=== PATIENT | male | born 1960 | race Caucasian/White ===

== ENCOUNTER 2017-01-19 16:52 | Inpatient (IN) | payer OTHER ==
[2017-01-19 19:03] VITALS: BMI 25.8
--- NOTE | 2017-01-19 20:40 | HP ---
COWS - Scale Resting Pulse: 0= [place] 80 or Below Sweatin= Chills/Flushing Restless Observation: 1= Difficult to Sit Still Pupil Size: 0= Normal to Room Light Bone or Joint Aches: 2= Severe Diffuse Aches Runny Nose/ Eye Tearin= Runny Nose/Eyes GI Upset > 30mins: 2= Nausea/Diarrhea Tremor Observation: 2= Slight Tremor Visible Yawning Observation: 1= 1-2x During Session Anxiety or Irritability: 2=Irritable/Anxious Goose Flesh Skin: 0=Smooth Skin COWS Score: 13 CIWA Score - CIWA Score Nausea/Vomitin-Mild Nausea/No Vomiting Muscle Tremors: 4-Moderate,w/Arms Extend Anxiety: 4-Mod. Anxious/Guarded Agitation: 4-Moderately Restless Paroxysmal Sweats: 1-Minimal Palms Moist Orientation: 1-Uncertain about Date Tacttile Disturbances: 0-None Auditory Disturbances: 0-None Visual Disturbances: 0-None Headache: 0-None Present CIWA-Ar Total Score: 15 Admission ROS S - HPI Chief Complaint: withdrawal sx Allergies/Adverse Reactions: Allergies Allergy/AdvReac Type Severity Reaction Status Date / Time No Known Allergies Allergy Verified 01/19/17 19:49 History of Present Illness: 56 years old male with long history of alcohol heroin nicotine marijuana dependence has asthma seizure and depression is admitted to detox Exam Limitations: No Limitations - Ebola screening Have you traveled outside of the country in the last 21 days: No Have you had contact with anyone from an Ebola affected area: No Have you been sick,other than usual withdrawal symptoms: No Do you have a fever: No - Review of Systems Constitutional: Changes in sleep, Weight Stable EENT: reports: No Symptoms Reported Respiratory: reports: SOB with Exertion Cardiac: reports: No Symptoms Reported GI: reports: Nausea, Poor Fluid Intake, Abdominal cramping : reports: No Symptoms Reported Musculoskeletal: reports: Back Pain, Joint Pain, Muscle Pain, Neck Pain Integumentary: reports: Change in Color (fungal feet) Neuro: reports: Seizure (12/2016), Tremors Endocrine: reports: No Symptoms Reported Hematology: reports: No Symptoms Reported Psychiatric: reports: Judgement Intact, Depressed Other Systems: Reviewed and Negative Patient History - Patient Medical History Hx Anemia: No Hx Asthma: Yes Hx Chronic Obstructive Pulmonary Disease (COPD): No Hx Cancer: No Hx Cardiac Disorders: No Hx Congestive Heart Failure: No Hx Hypertension: No Hx Hypercholesterolemia: No Hx Pacemaker: No HX Cerebrovascular Accident: No Hx Seizures: Yes (1 month ago) Hx Dementia: No Hx Diabetes: No Hx Gastrointestinal Disorders: No Hx Liver Disease: No Hx Genitourinary Disorders: No Hx Sexually Transmitted Disorders: No Hx Renal Disease (ESRD): No Hx Thyroid Disease: No Hx Human Immunodeficiency Virus (HIV): No Hx Hepatitis C: No Hx Depression: Yes Hx Suicide Attempt: Yes (11/2016 jump off train ) Hx Bipolar Disorder: No Hx Schizophrenia: No - Patient Surgical History Past Surgical History: No - PPD History Previous Implant?: Yes Documented Results: Negative w/o proof Implanted On Prior [facility] Admission?: No PPD to be Administered?: Yes - Smoking Cessation Smoking history: Current every day smoker Have you smoked in the past 12 months: Yes Aproximately how many cigarettes per day: 10 Cigars Per Day: 0 Hx Chewing Tobacco Use: No Initiated information on smoking cessation: Yes 'Breaking Loose' booklet given: 01/19/17 - Substance & Tx. History Hx Alcohol Use: Yes Hx Substance Use: Yes Substance Use Type: Alcohol, Heroin, Marijuana Hx Substance Use Treatment: Yes (2010 [facility]) - Substances Abused Heroin Route: Inhalation Frequency: Daily Amount used: 3-4 bags Age of first use: 39 Date of Last Use: 01/19/17 Alcohol Route: Oral Frequency: Daily Amount used: vodka 1 liter Age of first use: 11 Date of Last Use: 01/19/17 Family Disease History - Family Disease History Family Disease History: Other: Father (no contact), Mother (no contact), Brother (no contact), Sister (no contract) Admission Physical Exam S - Vital Signs Vital Signs: Vital Signs - 24 hr 01/19/17 18:59 Temperature 97.2 F L Pulse Rate 70 Respiratory 18 Rate Blood Pressure 110/83 - Physical General Appearance: Yes: Nourished, Appropriately Dressed, Mild Distress, Alcohol on Breath, Tremorous, Irritable, Sweating, Anxious HEENTM: Yes: Hearing grossly Normal, Normal ENT Inspection, Normocephalic, Normal Voice Respiratory: Yes: Chest Non-Tender, Lungs Clear, Normal Breath Sounds, No Respiratory Distress, No Accessory Muscle Use Neck: Yes: Supple, Trachea in good position Breast: Yes: Breasts Symetrical Cardiology: Yes: Regular Rhythm, Regular Rate, S1, S2 Abdominal: Yes: Non Tender, Soft Genitourinary: Yes: Within Normal Limits Back: Yes: Normal Inspection Musculoskeletal: Yes: full range of Motion, Gait Steady, Back pain, Muscle Pain Extremities: Yes: Normal Range of Motion, Non-Tender, Tremors Neurological: Yes: Alert, Motor Strength 5/5, Normal Response, Depressed Affect Integumentary: Yes: Warm Lymphatic: Yes: Within Normal Limits - Diagnostic (1) Alcohol dependence with uncomplicated withdrawal Current Visit: Yes Status: Acute (2) Opioid dependence with withdrawal Current Visit: Yes Status: Acute (3) Cannabis dependence, uncomplicated Current Visit: Yes Status: Chronic (4) Nicotine dependence Current Visit: Yes Status: Acute Qualifiers: Nicotine product type: cigarettes Substance use status: in withdrawal Qualified Code(s): F17.213 - Nicotine dependence, cigarettes, with withdrawal (5) Asthma Current Visit: Yes Status: Chronic Qualifiers: Asthma severity: mild intermittent (6) Seizure Current Visit: Yes Status: Chronic (7) Depression (emotion) Current Visit: Yes Status: Suspected Qualifiers: Depression Type: dysthymia Qualified Code(s): F34.1 - Dysthymic disorder Cleared for Admission [facility] - Detox or Rehab [facility] Level of Care: Medically Managed Detox Regimen/Protocol: Methadone/Librium [facility] Breath Alcohol Content Breath Alcohol Content: 0.147 Urine Drug Screen - Results Drug Screen Negative: No Urine Drug Screen Results: THC-Marijuana, OPI-Opiates
[2017-01-19] MEDS ORDERED: ACETAMINOPHEN 325 MG TABLET (FP) PO PRN (20:41)
[2017-01-19] MEDS ORDERED: chlordiazePOXIDE HCL 25 MG CAPSULE PO PRN (20:41)
[2017-01-19] MEDS ORDERED: MAGNESIUM HYDROX 2400MG/30ML ORAL SUSPENSION 30 ML CUP PO PRN (20:41)
[2017-01-19] MEDS ORDERED: MAGNESIUM CITRATE 300 ML BOTTLE PO PRN (20:41)
[2017-01-19] MEDS ORDERED: NICOTINE POLACRILEX 2 MG GUM BUC PRN (20:41)
[2017-01-19] MEDS ORDERED: METHADONE HCL 10 MG TABLET (FOR DETOX USE ONLY) PO ONE ×2 (20:41→23:00)
[2017-01-19] MEDS ORDERED: MENTHOL/PHENOL 1 EACH UD MM PRN (20:41)
[2017-01-19] MEDS ORDERED: MAG HYDROX/AL HYDROX/SIMETH 30 ML UNIT-DOSE CUP PO PRN (20:41)
[2017-01-19] MEDS ORDERED: guaiFENesin/D-METHORPHAN HB 10 ML UNIT-DOSE CUPS PO PRN (20:41)
[2017-01-19] MEDS ORDERED: P-EPHED 60MG/TRIPROLIDI 2.5MG TABLET PO PRN (20:41)
[2017-01-19] MEDS ORDERED: LOPERAMIDE HCL 2 MG CAPSULE PO PRN (20:41)
[2017-01-19] MEDS ORDERED: ALBUTEROL SO4 6.7 GM HFA INHALER IH PRN (20:46)
[2017-01-19] MEDS ORDERED: METHADONE HCL 10 MG TABLET (FOR DETOX USE ONLY) ONE (22:59)
[2017-01-19] MEDS: PHENYTOIN NA EXTENDED 100 MG CAPSULE (FP) PO SCH (23:00)
[2017-01-19] MEDS: CLOTRIMAZOLE 1% CREAM 15 GM TUBE TP SCH (23:01)
[2017-01-19] MEDS: chlordiazePOXIDE HCL 25 MG CAPSULE PO SCH (23:01)
[2017-01-19] MEDS: THIAMINE HCL 100 MG TABLET (FP) PO SCH (23:01)
[2017-01-20] MEDS: PHENYTOIN NA EXTENDED 100 MG CAPSULE (FP) PO SCH ×3 (05:44→22:23)
[2017-01-20] MEDS: chlordiazePOXIDE HCL 25 MG CAPSULE PO SCH ×4 (05:45→22:23)
--- NOTE | 2017-01-20 09:41 | CONSULT ---
[facility] Psychiatric Consult - Data Date of interview: 01/20/17 Admission source: [facility] Identifying data: This is 56 years old male with no psychiatric hospitalization history, intoxicated with: Alcohol, Cannabis,m Opioids and Nicotine Substance Abuse History: - Smoking Cessation. Smoking history: Current every day smoker. Have you smoked in the past 12 months: Yes. Aproximately how many cigarettes per day: 10. Cigars Per Day: 0. Hx Chewing Tobacco Use: No. Initiated information on smoking cessation: Yes. 'Breaking Loose' booklet given : 01/19/17. - Substance & Tx. History. Hx Alcohol Use: Yes. Hx Substance Use : Yes. Substance Use Type: Alcohol, Heroin, Marijuana. Hx Substance Use Treatment: Yes (2010). - Substances Abused. Heroin. Route: Inhalation. Frequency: Daily. Amount used: 3-4 bags. Age of first use: 39. Date of Last Use: 01/19/17. Alcohol. Route: Oral. Frequency: Daily. Amount used: vodka 1 liter. Age of first use: 11. Date of Last Use: 01/19/17 Medical History: Asthma, Seizure history Psychiatric History: Patoient rep[rots history [id number] depression, reports no medications taking prior to admission Physical/Sexual Abuse/Trauma History: Denies Additional Comment: Observatiluken. Detox Unit Care Protocol Mental Status Exam - Mental Status Exam Alert and Oriented to: Person Cognitive Function: Fair Patient Appearance: Unkempt Mood: Sad Affect: Flat Patient Behavior: Sedated Speech Pattern: Delayed Voice Loudness: Mildly Soft/Quiet Thought Process: Circumstantial Thought Disorder: Being Controlled Hallucinations: Denies Suicidal Ideation: Denies Homicidal Ideation: Denies Insight/Judgement: Fair Sleep: Difficulty falling asleep Appetite: Fair Muscle strength/Tone: Mild Hypotonicity Gait/Station: Shuffling Additional Comments: Observatiuon. Detox Unit Care Protocol Psychiatric Findings - Problem List (Seltzer 1, 2,3) (1) Alcohol dependence with uncomplicated withdrawal Current Visit: Yes Status: Acute (2) Nicotine dependence Current Visit: Yes Status: Acute Qualifiers: Nicotine product type: cigarettes Substance use status: in withdrawal Qualified Code(s): F17.213 - Nicotine dependence, cigarettes, with withdrawal (3) Opioid dependence with withdrawal Current Visit: Yes Status: Acute (4) Cannabis dependence, uncomplicated Current Visit: Yes Status: Chronic (5) Drug-induced mood disorder Current Visit: Yes Status: Acute - Initial Treatment Plan Initial Treatment Plan: Observatiuon. Detox Unit Care Protocol
[2017-01-20 09:59] LABS: MCH 34.6 pg (25.7-33.7); MCHC 34.2 g/dl (32.0-35.9); MEAN PLT VOLUME 8.7 fl (7.5-11.1); PLATELET COUNT 158 K/MM3 (134-434); RDW 14.6 % (11.9-15.9); WHITE BLOOD COUNT 3.9 K/mm3 (4.0-10.0)
[2017-01-20] MEDS ORDERED: METHADONE HCL 10 MG TABLET (FOR DETOX USE ONLY) PO SCH (10:00)
[2017-01-20] MEDS: NICOTINE 14 MG/24 HOURS TOPICAL PATCH TD SCH (10:35)
[2017-01-20] MEDS: PRENATAL VITAMINS W/ FOLIC ACID TABLET (FP) PO SCH (10:35)
[2017-01-20] MEDS: CLOTRIMAZOLE 1% CREAM 15 GM TUBE TP SCH ×2 (10:35→22:23)
[2017-01-20 10:44] LABS: ALBUMIN 3.5 g/dl (3.4-5.0); ALK PHOS 82 U/L (45-117); ANION GAP 8 (8-16); BILIRUBIN,TOTAL 0.9 mg/dL (0.2-1.0); CALCIUM 9.1 mg/dL (8.5-10.1); CO2 29 mmol/L (21-32); CREATININE 0.8 mg/dL (0.7-1.3); GLUCOSE,RANDOM 83 mg/dL (74-106); SGOT/AST 19 U/L (15-37); SGPT/ALT 19 U/L (12-78)
[2017-01-20] MEDS ORDERED: PHENYTOIN NA EXTENDED 100 MG CAPSULE (FP) PO ONE (11:54)
--- NOTE | 2017-01-20 11:55 | PN ---
[facility] CIWA - CIWA Score Nausea/Vomitin Muscle Tremors: 4-Moderate,w/Arms Extend Anxiety: 3 Agitation: 4-Moderately Restless Paroxysmal Sweats: 3 Orientation: 0-Oriented Tacttile Disturbances: 0-None Auditory Disturbances: 0-None Visual Disturbances: 0-None Headache: 0-None Present CIWA-Ar Total Score: 17 [facility] COWS - Scale Resting Pulse: 0= [place] 80 or Below Sweatin= Chills/Flushing Restless Observation: 1= Difficult to Sit Still Pupil Size: 1= Pupils >than Normal Bone or Joint Aches: 1= Mild Discomfort Runny Nose/ Eye Tearin= Nasal Congestion GI Upset > 30mins: 1= Stomach Cramp Tremor Observation of Outstretched Hands: 2= Slight Tremor Visible Yawning Observation: 1= 1-2x During Session Anxiety or Irritability: 2=Irritable/Anxious Goose Flesh Skin: 3=Piloerection COWS Score: 14 [facility] Progress Note (SOAP) Subjective: nausea, sweats, interrupted sleep, anxiety, tremors Objective: 01/20/17 11:53 Vital Signs - 24 hr 01/19/17 01/19/17 01/20/17 18:59 23:00 00:28 Temperature 97.2 F L 97.8 F Pulse Rate 70 66 Respiratory 18 20 18 Rate Blood Pressure 110/83 135/89 01/20/17 01/20/17 01/20/17 03:47 06:46 10:07 Temperature 97.6 F 97.4 F L Pulse Rate 67 64 Respiratory 18 18 18 Rate Blood Pressure 138/94 137/87 Laboratory Tests 01/20/17 01/20/17 01/20/17 07:00 07:00 07:00 WBC 3.9 L RBC 4.28 Hgb 14.8 Hct 43.3 MCV 101.0 H MCH 34.6 H MCHC 34.2 RDW 14.6 Plt Count 158 MPV 8.7 Sodium 139 Potassium 3.6 Chloride 102 Carbon Dioxide 29 Anion Gap 8 BUN 10 Creatinine 0.8 Creat Clearance w eGFR > 60 Random Glucose 83 Calcium 9.1 Total Bilirubin 0.9 AST 19 ALT 19 Alkaline Phosphatase 82 Total Protein 7.0 Albumin 3.5 Phenytoin 3.4 L RPR Titer 01/20/17 07:00 WBC RBC Hgb Hct MCV MCH MCHC RDW Plt Count MPV Sodium Potassium Chloride Carbon Dioxide Anion Gap BUN Creatinine Creat Clearance w eGFR Random Glucose Calcium Total Bilirubin AST ALT Alkaline Phosphatase Total Protein Albumin Phenytoin RPR Titer Nonreactive Assessment: 01/20/17 11:54 withdrawal sx, low dilantin level Plan: cont detox, supplement dilantin, repeat level
--- NOTE | 2017-01-20 15:02 | EKG ---
Test Reason : Blood Pressure : / mmHG Vent. Rate : 057 BPM Atrial Rate : 057 BPM P-R Int : 150 ms QRS Dur : 084 ms QT Int : 432 ms P-R-T Axes : 067 058 059 degrees QTc Int : 420 ms SINUS BRADYCARDIA OTHERWISE NORMAL ECG NO PREVIOUS ECGS AVAILABLE Confirmed by GARY RODRIGUEZ, DELGADO ([id number]) on 01/20/2017 3:02:00 PM Referred By: Jeremie Calvillo Confirmed By:DELGADO VEGA MD
[2017-01-20 17:24] LABS: PH,URINE 5.5 (5.0-8.0); URINE APPEARANCE CLEAR; URINE BILIRUBIN NEGATIVE (NEGATIVE); URINE BLOOD NEGATIVE (NEGATIVE); URINE COLOR LT. YELLOW; URINE GLUCOSE (UA) NEGATIVE (NEGATIVE); URINE KETONE NEGATIVE (NEGATIVE); URINE LEUK ESTERASE NEGATIVE (NEGATIVE); URINE NITRITE NEGATIVE (NEGATIVE); URINE PROTEIN NEGATIVE (NEGATIVE); URINE UROBILINOGEN 0.2 mg/dL (0.2-1.0)
[2017-01-20] MEDS: THIAMINE HCL 100 MG TABLET (FP) PO SCH (22:23)
[2017-01-21] MEDS: PHENYTOIN NA EXTENDED 100 MG CAPSULE (FP) PO SCH ×3 (05:48→22:12)
[2017-01-21] MEDS: chlordiazePOXIDE HCL 25 MG CAPSULE PO SCH ×3 (05:48→18:43)
[2017-01-21] MEDS: PRENATAL VITAMINS W/ FOLIC ACID TABLET (FP) PO SCH (10:25)
[2017-01-21] MEDS: METHADONE HCL 5 MG TABLET (FOR DETOX USE ONLY) PO SCH (10:25)
[2017-01-21] MEDS: CLOTRIMAZOLE 1% CREAM 15 GM TUBE TP SCH ×2 (10:26→23:02)
[2017-01-21] MEDS: NICOTINE 14 MG/24 HOURS TOPICAL PATCH TD SCH (10:26)
--- NOTE | 2017-01-21 16:15 | PN ---
[facility] CIWA - CIWA Score Nausea/Vomitin-No Nausea/No Vomiting Muscle Tremors: 3 Anxiety: 4-Mod. Anxious/Guarded Agitation: 3 Paroxysmal Sweats: 3 Orientation: 0-Oriented Tacttile Disturbances: 0-None Auditory Disturbances: 0-None Visual Disturbances: 0-None Headache: 0-None Present CIWA-Ar Total Score: 13 [facility] COWS - Scale Resting Pulse: 0= [place] 80 or Below Sweatin=Flushed/Facial Moisture Restless Observation: 1= Difficult to Sit Still Pupil Size: 0= Normal to Room Light Bone or Joint Aches: 1= Mild Discomfort Runny Nose/ Eye Tearin= Runny Nose/Eyes GI Upset > 30mins: 2= Nausea/Diarrhea Tremor Observation of Outstretched Hands: 2= Slight Tremor Visible Yawning Observation: 1= 1-2x During Session Anxiety or Irritability: 2=Irritable/Anxious Goose Flesh Skin: 0=Smooth Skin COWS Score: 13 [facility] Progress Note (SOAP) Subjective: Anxiety,tremors,sweating,interrupted sleep,restless Objective: 01/21/17 16:14 Vital Signs - 8 hr 01/21/17 01/21/17 01/21/17 09:38 09:48 13:56 Temperature 97.8 F 97.8 F 97.3 F L Pulse Rate 69 69 71 Respiratory 18 18 18 Rate Blood Pressure 125/88 125/88 124/93 Laboratory Last Values WBC 3.9 K/mm3 (4.0-10.0) L 01/20/17 07:00 RBC 4.28 M/mm3 (4.00-5.60) 01/20/17 07:00 Hgb 14.8 GM/dL (11.7-16.9) 01/20/17 07:00 Hct 43.3 % (35.4-49) 01/20/17 07:00 MCV 101.0 fl (80-96) H 01/20/17 07:00 MCH 34.6 pg (25.7-33.7) H 01/20/17 07:00 MCHC 34.2 g/dl (32.0-35.9) 01/20/17 07:00 RDW 14.6 % (11.9-15.9) 01/20/17 07:00 Plt Count 158 K/MM3 (134-434) 01/20/17 07:00 MPV 8.7 fl (7.5-11.1) 01/20/17 07:00 Sodium 139 mmol/L (136-145) 01/20/17 07:00 Potassium 3.6 mmol/L (3.5-5.1) 01/20/17 07:00 Chloride 102 mmol/L (98-107) 01/20/17 07:00 Carbon Dioxide 29 mmol/L (21-32) 01/20/17 07:00 Anion Gap 8 (8-16) 01/20/17 07:00 BUN 10 mg/dL (7-18) 01/20/17 07:00 Creatinine 0.8 mg/dL (0.7-1.3) 01/20/17 07:00 Creat Clearance w eGFR > 60 (>60) 01/20/17 07:00 Random Glucose 83 mg/dL (74-106) 01/20/17 07:00 Calcium 9.1 mg/dL (8.5-10.1) 01/20/17 07:00 Total Bilirubin 0.9 mg/dL (0.2-1.0) 01/20/17 07:00 AST 19 U/L (15-37) 01/20/17 07:00 ALT 19 U/L (12-78) 01/20/17 07:00 Alkaline Phosphatase 82 U/L (45-117) 01/20/17 07:00 Total Protein 7.0 g/dl (6.4-8.2) 01/20/17 07:00 Albumin 3.5 g/dl (3.4-5.0) 01/20/17 07:00 Urine Color Lt. yellow 01/19/17 15:00 Urine Appearance Clear 01/19/17 15:00 Urine pH 5.5 (5.0-8.0) 01/19/17 15:00 Ur Specific [place] 1.015 (1.005-1.025) 01/19/17 15:00 Urine Protein Negative (NEGATIVE) 01/19/17 15:00 Urine Glucose (UA) Negative (NEGATIVE) 01/19/17 15:00 Urine Ketones Negative (NEGATIVE) 01/19/17 15:00 Urine Blood Negative (NEGATIVE) 01/19/17 15:00 Urine Nitrite Negative (NEGATIVE) 01/19/17 15:00 Urine Bilirubin Negative (NEGATIVE) 01/19/17 15:00 Urine Urobilinogen 0.2 mg/dL (0.2-1.0) 01/19/17 15:00 Ur Leukocyte Esterase Negative (NEGATIVE) 01/19/17 15:00 Phenytoin 3.4 ug/ml (10.0-20.0) L 01/20/17 07:00 RPR Titer Nonreactive (NONREACTIVE) 01/20/17 07:00 Hepatitis C Antibody <0.1 s/co ratio (0.0-0.9) 01/19/17 07:00 labs noted,dilantin level is low Assessment: 01/21/17 16:14 Withdrawal sx. Plan: Continue detox Dilantin 300mg
[2017-01-21] MEDS: THIAMINE HCL 100 MG TABLET (FP) PO SCH (22:12)
[2017-01-21] MEDS: chlordiazePOXIDE 5 MG CAPSULE PO SCH (22:12)
[2017-01-22] MEDS: chlordiazePOXIDE 5 MG CAPSULE PO SCH ×3 (05:42→17:47)
[2017-01-22] MEDS: PHENYTOIN NA EXTENDED 100 MG CAPSULE (FP) PO SCH ×3 (05:42→22:25)
[2017-01-22] MEDS: PRENATAL VITAMINS W/ FOLIC ACID TABLET (FP) PO SCH (10:39)
[2017-01-22] MEDS: METHADONE HCL 5 MG TABLET (FOR DETOX USE ONLY) PO SCH (10:39)
[2017-01-22] MEDS: CLOTRIMAZOLE 1% CREAM 15 GM TUBE TP SCH ×2 (10:39→22:25)
[2017-01-22] MEDS: IBUPROFEN 400 MG TABLET (FP) PO PRN (10:42)
[2017-01-22] MEDS: NICOTINE 14 MG/24 HOURS TOPICAL PATCH TD SCH (10:43)
--- NOTE | 2017-01-22 20:34 | PN ---
[facility] Progress Note (SOAP) Subjective: Tremors, Body Aches, Anxious. Objective: PT. A & O X 3, OBSERVED AMBULATING ON UNIT. NO ACUTE DISTRESS. 01/22/17 20:30 Vital Signs Temperature 97.8 F 01/22/17 19:01 Pulse Rate 63 01/22/17 19:01 Respiratory Rate 18 01/22/17 19:01 Blood Pressure 107/71 01/22/17 19:01 O2 Sat by Pulse Oximetry (%) Laboratory Tests 01/19/17 01/19/17 01/20/17 07:00 15:00 07:00 WBC 3.9 L RBC 4.28 Hgb 14.8 Hct 43.3 MCV 101.0 H MCH 34.6 H MCHC 34.2 RDW 14.6 Plt Count 158 MPV 8.7 Sodium Potassium Chloride Carbon Dioxide Anion Gap BUN Creatinine Creat Clearance w eGFR Random Glucose Calcium Total Bilirubin AST ALT Alkaline Phosphatase Total Protein Albumin Urine Color Lt. yellow Urine Appearance Clear Urine pH 5.5 Ur Specific [place] 1.015 Urine Protein Negative Urine Glucose (UA) Negative Urine Ketones Negative Urine Blood Negative Urine Nitrite Negative Urine Bilirubin Negative Urine Urobilinogen 0.2 Ur Leukocyte Esterase Negative Phenytoin RPR Titer Hepatitis C Antibody <0.1 01/20/17 01/20/17 01/20/17 07:00 07:00 07:00 WBC RBC Hgb Hct MCV MCH MCHC RDW Plt Count MPV Sodium 139 Potassium 3.6 Chloride 102 Carbon Dioxide 29 Anion Gap 8 BUN 10 Creatinine 0.8 Creat Clearance w eGFR > 60 Random Glucose 83 Calcium 9.1 Total Bilirubin 0.9 AST 19 ALT 19 Alkaline Phosphatase 82 Total Protein 7.0 Albumin 3.5 Urine Color Urine Appearance Urine pH Ur Specific [place] Urine Protein Urine Glucose (UA) Urine Ketones Urine Blood Urine Nitrite Urine Bilirubin Urine Urobilinogen Ur Leukocyte Esterase Phenytoin 3.4 L RPR Titer Nonreactive Hepatitis C Antibody 01/22/17 08:00 WBC RBC Hgb Hct MCV MCH MCHC RDW Plt Count MPV Sodium Potassium Chloride Carbon Dioxide Anion Gap BUN Creatinine Creat Clearance w eGFR Random Glucose Calcium Total Bilirubin AST ALT Alkaline Phosphatase Total Protein Albumin Urine Color Urine Appearance Urine pH Ur Specific [place] Urine Protein Urine Glucose (UA) Urine Ketones Urine Blood Urine Nitrite Urine Bilirubin Urine Urobilinogen Ur Leukocyte Esterase Phenytoin 6.0 L D RPR Titer Hepatitis C Antibody LABS NOTED. RESULT OF REPEAT DILANTIN LEVEL NOTED. PT. CURRENTLY ON DILANTIN, 100 MG PO TID. 01/22/17 20:36 Assessment: 01/22/17 20:31 WITHDRAWAL SYMPTOMS. Plan: CONTINUE DETOX.
[2017-01-22] MEDS: THIAMINE HCL 100 MG TABLET (FP) PO SCH (22:24)
[2017-01-22] MEDS: chlordiazePOXIDE HCL 10 MG CAPSULE PO SCH (22:24)
[2017-01-22] MEDS: diphenhydrAMINE HCL 50 MG CAPSULE PO PRN (22:25)
[2017-01-23] MEDS: chlordiazePOXIDE HCL 10 MG CAPSULE PO SCH ×3 (05:59→16:56)
[2017-01-23] MEDS: PHENYTOIN NA EXTENDED 100 MG CAPSULE (FP) PO SCH ×3 (05:59→22:27)
[2017-01-23] MEDS ORDERED: METHADONE HCL 10 MG TABLET (FOR DETOX USE ONLY) PO SCH (10:00)
[2017-01-23] MEDS: CLOTRIMAZOLE 1% CREAM 15 GM TUBE TP SCH ×2 (10:40→22:48)
[2017-01-23] MEDS: PRENATAL VITAMINS W/ FOLIC ACID TABLET (FP) PO SCH (10:40)
[2017-01-23] MEDS: NICOTINE 14 MG/24 HOURS TOPICAL PATCH TD SCH (10:40)
[2017-01-23] MEDS: IBUPROFEN 400 MG TABLET (FP) PO PRN (11:02)
--- NOTE | 2017-01-23 16:05 | PN ---
[facility] Progress Note (SOAP) Subjective: Anxious, restless, interrupted sleep, sweating. Patient stated that he is for discharge tomorrow and wants to leave at 8am because he has a doctor's appt at 10am. Objective: 01/23/17 16:03 Last Vital Signs Temp Pulse Resp BP Pulse Ox 97.0 F L 67 18 122/82 01/23/17 13:49 01/23/17 13:49 01/23/17 13:49 01/23/17 13:49 Laboratory Tests 01/19/17 01/19/17 01/20/17 07:00 15:00 07:00 WBC 3.9 L RBC 4.28 Hgb 14.8 Hct 43.3 MCV 101.0 H MCH 34.6 H MCHC 34.2 RDW 14.6 Plt Count 158 MPV 8.7 Sodium Potassium Chloride Carbon Dioxide Anion Gap BUN Creatinine Creat Clearance w eGFR Random Glucose Calcium Total Bilirubin AST ALT Alkaline Phosphatase Total Protein Albumin Urine Color Lt. yellow Urine Appearance Clear Urine pH 5.5 Ur Specific [place] 1.015 Urine Protein Negative Urine Glucose (UA) Negative Urine Ketones Negative Urine Blood Negative Urine Nitrite Negative Urine Bilirubin Negative Urine Urobilinogen 0.2 Ur Leukocyte Esterase Negative Phenytoin RPR Titer Hepatitis C Antibody <0.1 01/20/17 01/20/17 01/20/17 07:00 07:00 07:00 WBC RBC Hgb Hct MCV MCH MCHC RDW Plt Count MPV Sodium 139 Potassium 3.6 Chloride 102 Carbon Dioxide 29 Anion Gap 8 BUN 10 Creatinine 0.8 Creat Clearance w eGFR > 60 Random Glucose 83 Calcium 9.1 Total Bilirubin 0.9 AST 19 ALT 19 Alkaline Phosphatase 82 Total Protein 7.0 Albumin 3.5 Urine Color Urine Appearance Urine pH Ur Specific [place] Urine Protein Urine Glucose (UA) Urine Ketones Urine Blood Urine Nitrite Urine Bilirubin Urine Urobilinogen Ur Leukocyte Esterase Phenytoin 3.4 L RPR Titer Nonreactive Hepatitis C Antibody 01/22/17 08:00 WBC RBC Hgb Hct MCV MCH MCHC RDW Plt Count MPV Sodium Potassium Chloride Carbon Dioxide Anion Gap BUN Creatinine Creat Clearance w eGFR Random Glucose Calcium Total Bilirubin AST ALT Alkaline Phosphatase Total Protein Albumin Urine Color Urine Appearance Urine pH Ur Specific [place] Urine Protein Urine Glucose (UA) Urine Ketones Urine Blood Urine Nitrite Urine Bilirubin Urine Urobilinogen Ur Leukocyte Esterase Phenytoin 6.0 L D RPR Titer Hepatitis C Antibody Labs noted Assessment: 01/23/17 16:04 Withdrawal symptoms Plan: Continue detox Ordered for discharge tomorrow at 08:00.
[2017-01-23] MEDS: THIAMINE HCL 100 MG TABLET (FP) PO SCH (22:27)
[2017-01-23] MEDS: diphenhydrAMINE HCL 50 MG CAPSULE PO PRN (22:28)
[2017-01-24] MEDS: PHENYTOIN NA EXTENDED 100 MG CAPSULE (FP) PO SCH (05:25)
[2017-01-24] MEDS ORDERED: METHADONE HCL 5 MG TABLET (FOR DETOX USE ONLY) PO SCH (06:00)
[2017-01-24] MEDS: PRENATAL VITAMINS W/ FOLIC ACID TABLET (FP) PO SCH (09:05)
[2017-01-24] MEDS: CLOTRIMAZOLE 1% CREAM 15 GM TUBE TP SCH (09:05)
[2017-01-24] MEDS: NICOTINE 14 MG/24 HOURS TOPICAL PATCH TD SCH (09:05)
[2017-01-24 09:40] VITALS: BP 120/93; PULSE 78; TEMP 97.2
--- NOTE | 2017-01-24 09:44 | DS ---
[facility] Detox Discharge Summary Admission Date: 01/19/17 Discharge Date: 01/24/17 - History Present History: Alcohol Dependence, Cannabis Dependence, Opioid Dependence Pertinent Past History: Asthma Seizure disorder - Physical Exam Results Vital Signs: Vital Signs Temperature 97.4 F L 01/24/17 06:26 Pulse Rate 68 01/24/17 06:26 Respiratory Rate 18 01/24/17 06:26 Blood Pressure 127/89 01/24/17 06:26 O2 Sat by Pulse Oximetry (%) Pertinent Admission Physical Exam Findings: Withdrawal sx. Laboratory Last Values WBC 3.9 K/mm3 (4.0-10.0) L 01/20/17 07:00 RBC 4.28 M/mm3 (4.00-5.60) 01/20/17 07:00 Hgb 14.8 GM/dL (11.7-16.9) 01/20/17 07:00 Hct 43.3 % (35.4-49) 01/20/17 07:00 MCV 101.0 fl (80-96) H 01/20/17 07:00 MCH 34.6 pg (25.7-33.7) H 01/20/17 07:00 MCHC 34.2 g/dl (32.0-35.9) 01/20/17 07:00 RDW 14.6 % (11.9-15.9) 01/20/17 07:00 Plt Count 158 K/MM3 (134-434) 01/20/17 07:00 MPV 8.7 fl (7.5-11.1) 01/20/17 07:00 Sodium 139 mmol/L (136-145) 01/20/17 07:00 Potassium 3.6 mmol/L (3.5-5.1) 01/20/17 07:00 Chloride 102 mmol/L (98-107) 01/20/17 07:00 Carbon Dioxide 29 mmol/L (21-32) 01/20/17 07:00 Anion Gap 8 (8-16) 01/20/17 07:00 BUN 10 mg/dL (7-18) 01/20/17 07:00 Creatinine 0.8 mg/dL (0.7-1.3) 01/20/17 07:00 Creat Clearance w eGFR > 60 (>60) 01/20/17 07:00 Random Glucose 83 mg/dL (74-106) 01/20/17 07:00 Calcium 9.1 mg/dL (8.5-10.1) 01/20/17 07:00 Total Bilirubin 0.9 mg/dL (0.2-1.0) 01/20/17 07:00 AST 19 U/L (15-37) 01/20/17 07:00 ALT 19 U/L (12-78) 01/20/17 07:00 Alkaline Phosphatase 82 U/L (45-117) 01/20/17 07:00 Total Protein 7.0 g/dl (6.4-8.2) 01/20/17 07:00 Albumin 3.5 g/dl (3.4-5.0) 01/20/17 07:00 Urine Color Lt. yellow 01/19/17 15:00 Urine Appearance Clear 01/19/17 15:00 Urine pH 5.5 (5.0-8.0) 01/19/17 15:00 Ur Specific [place] 1.015 (1.005-1.025) 01/19/17 15:00 Urine Protein Negative (NEGATIVE) 01/19/17 15:00 Urine Glucose (UA) Negative (NEGATIVE) 01/19/17 15:00 Urine Ketones Negative (NEGATIVE) 01/19/17 15:00 Urine Blood Negative (NEGATIVE) 01/19/17 15:00 Urine Nitrite Negative (NEGATIVE) 01/19/17 15:00 Urine Bilirubin Negative (NEGATIVE) 01/19/17 15:00 Urine Urobilinogen 0.2 mg/dL (0.2-1.0) 01/19/17 15:00 Ur Leukocyte Esterase Negative (NEGATIVE) 01/19/17 15:00 Phenytoin 6.0 ug/ml (10.0-20.0) L D 01/22/17 08:00 RPR Titer Nonreactive (NONREACTIVE) 01/20/17 07:00 Hepatitis C Antibody <0.1 s/co ratio (0.0-0.9) 01/19/17 07:00 labs noted - Treatment Hospital Course: Detox Protocol Followed, Detoxed Safely, Responded well, Discharged Condition Good, Rehab Referral Accepted Patient has Accepted a Rehab Referral to: [facility] Help Groups - Medication Discharge Medications: Ambulatory Orders Albuterol Sulfate Inhaler - [Ventolin Hfa Inhaler -] 2 inh PO Q4H #1 inhaler Phenytoin Na Extended [Dilantin -] 100 mg PO TID #90 mg 01/24/17 - Diagnosis (1) Alcohol dependence with uncomplicated withdrawal Current Visit: Yes Status: Acute (2) Drug-induced mood disorder Current Visit: Yes Status: Acute (3) Nicotine dependence Current Visit: Yes Status: Acute Qualifiers: Nicotine product type: cigarettes Substance use status: in withdrawal Qualified Code(s): F17.213 - Nicotine dependence, cigarettes, with withdrawal (4) Opioid dependence with withdrawal Current Visit: Yes Status: Acute (5) Asthma Current Visit: Yes Status: Chronic Qualifiers: Asthma severity: mild intermittent (6) Cannabis dependence, uncomplicated Current Visit: Yes Status: Chronic (7) Seizure Current Visit: Yes Status: Chronic - AMA Did Patient Leave Against Medical Advice: No
== END 2017-01-24 09:06 | disposition home or self-care (01) | DRG 773 ==
LOC: YASAS 16:52 → Y3N 21:40
PROVIDERS: ADMIT Internal Medicine; ATTEND Internal Medicine
PROC: HZ2ZZZZ Detoxification Services for Substance Abuse Treatment (ICD-10-PCS; principal; 2017-01-19)
DX: F11.23 Opioid dependence with withdrawal (principal); F10.230 Alcohol dependence with withdrawal, uncomplicated; F12.20 Cannabis dependence, uncomplicated; F17.213 Nicotine dependence, cigarettes, with withdrawal; F19.24 Other psychoactive substance dependence with psychoactive substance-induced mood disorder; J45.909 Unspecified asthma, uncomplicated; G40.909 Epilepsy, unspecified, not intractable, without status epilepticus; Z91.5 Personal history of self-harm
CPT/HCPCS: 36415; 80053; 80185; 81003; 85027; 86593; 86803; 93005; 93010

== ENCOUNTER 2017-05-03 15:34 | Inpatient (IN) | payer OTHER ==
[2017-05-03 17:08] VITALS: BMI 25.7
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
[2017-05-03] MEDS ORDERED: chlordiazePOXIDE HCL 25 MG CAPSULE PO PRN (19:05)
[2017-05-03] MEDS ORDERED: MAGNESIUM HYDROX 2400MG/30ML ORAL SUSPENSION 30 ML CUP PO PRN (19:05)
[2017-05-03] MEDS ORDERED: ACETAMINOPHEN 325 MG TABLET (FP) PO PRN (19:05)
[2017-05-03] MEDS ORDERED: P-EPHED 60MG/TRIPROLIDI 2.5MG TABLET PO PRN (19:05)
[2017-05-03] MEDS ORDERED: MAGNESIUM CITRATE 300 ML BOTTLE PO PRN (19:05)
[2017-05-03] MEDS ORDERED: MENTHOL/PHENOL 1 EACH UD MM PRN (19:05)
[2017-05-03] MEDS ORDERED: MAG HYDROX/AL HYDROX/SIMETH 30 ML UNIT-DOSE CUP PO PRN (19:05)
[2017-05-03] MEDS ORDERED: METHADONE HCL 10 MG TABLET (FOR DETOX USE ONLY) PO ONE ×2 (19:05→23:00)
[2017-05-03] MEDS ORDERED: LOPERAMIDE HCL 2 MG CAPSULE PO PRN (19:05)
[2017-05-03] MEDS ORDERED: NICOTINE POLACRILEX 4 MG GUM BC PRN (19:05)
[2017-05-03] MEDS ORDERED: guaiFENesin/D-METHORPHAN HB 10 ML UNIT-DOSE CUPS PO PRN (19:05)
[2017-05-03] MEDS ORDERED: ALBUTEROL SO4 2.5/IPRATROPIUM 0.5 INH SOL 3 ML VIAL.NEB. NEB PRN (19:07)
[2017-05-03] MEDS: ALBUTEROL SO4 18 GM HFA INHALER IH SCH ×2 (20:14→22:51)
[2017-05-03] MEDS: RANITIDINE HCL 150 MG TABLET (FP) PO SCH ×2 (20:14→22:06)
[2017-05-03] MEDS: PHENYTOIN NA EXTENDED 100 MG CAPSULE (FP) PO SCH (22:06)
[2017-05-03] MEDS: THIAMINE HCL 100 MG TABLET (FP) PO SCH (22:06)
[2017-05-03] MEDS: chlordiazePOXIDE HCL 25 MG CAPSULE PO SCH (22:06)
[2017-05-03] MEDS: LIDOCAINE PATCH REMOVAL MC SCH (22:06)
[2017-05-03] MEDS: CLOTRIMAZOLE 1% CREAM 15 GM TUBE TP SCH ×2 (22:51→23:27)
[2017-05-03] MEDS ORDERED: ALBUTEROL SO4 18 GM HFA INHALER IH PRN (22:53)
[2017-05-04] MEDS: chlordiazePOXIDE HCL 25 MG CAPSULE PO SCH ×4 (05:31→22:10)
[2017-05-04] MEDS: PHENYTOIN NA EXTENDED 100 MG CAPSULE (FP) PO SCH ×3 (05:31→22:09)
[2017-05-04] MEDS ORDERED: METHADONE HCL 10 MG TABLET (FOR DETOX USE ONLY) PO SCH (10:00)
[2017-05-04] MEDS: NICOTINE 21 MG/24 HOURS TOPICAL PATCH TD SCH (10:18)
[2017-05-04 10:19] LABS: MCH 35.3 pg (25.7-33.7); MCHC 33.6 g/dl (32.0-35.9); MEAN CELL VOLUME 105.1 fl (80-96); MEAN PLT VOLUME 8.8 fl (7.5-11.1); PLATELET COUNT 106 K/MM3 (134-434); RDW 12.3 % (11.9-15.9); WHITE BLOOD COUNT 3.4 K/mm3 (4.0-10.0)
[2017-05-04] MEDS: RANITIDINE HCL 150 MG TABLET (FP) PO SCH ×2 (10:19→22:09)
[2017-05-04] MEDS: CLOTRIMAZOLE 1% CREAM 15 GM TUBE TP SCH ×2 (10:19→22:09)
[2017-05-04 10:20] LABS: ALBUMIN 3.5 g/dl (3.4-5.0); ANION GAP 5 (8-16); BILIRUBIN,TOTAL 1.2 mg/dL (0.2-1.0); CALCIUM 8.6 mg/dL (8.5-10.1); CO2 33 mmol/L (21-32); CREATININE 0.7 mg/dL (0.7-1.3); GLUCOSE,RANDOM 79 mg/dL (74-106); SGOT/AST 39 U/L (15-37); SGPT/ALT 37 U/L (12-78); TOT PROT 6.6 g/dl (6.4-8.2)
[2017-05-04 10:21] LABS: ALK PHOS 89 U/L (45-117)
[2017-05-04] MEDS: PRENATAL VITAMINS W/ FOLIC ACID TABLET (FP) PO SCH (10:23)
[2017-05-04 10:48] LABS: URINE APPEARANCE CLEAR; URINE BILIRUBIN NEGATIVE (NEGATIVE); URINE BLOOD NEGATIVE (NEGATIVE); URINE COLOR YELLOW; URINE GLUCOSE (UA) NEGATIVE (NEGATIVE); URINE KETONE TRACE (NEGATIVE); URINE NITRITE NEGATIVE (NEGATIVE); URINE PROTEIN TRACE (NEGATIVE); URINE UROBILINOGEN 0.2 mg/dL (0.2-1.0)
[2017-05-04] MEDS: LIDOCAINE 5% TOPICAL PATCH TP SCH (11:22)
--- NOTE | 2017-05-04 11:28 | PN ---
[facility] CIWA - CIWA Score Nausea/Vomitin-No Nausea/No Vomiting Muscle Tremors: 4-Moderate,w/Arms Extend Anxiety: 3 Agitation: 2 Paroxysmal Sweats: 3 Orientation: 0-Oriented Tacttile Disturbances: 2-Mild Itch/Numbness/Burn Auditory Disturbances: 0-None Visual Disturbances: 0-None Headache: 3-Moderate CIWA-Ar Total Score: 17 BHS COWS - Scale Resting Pulse: 1= [place] 81-100 Sweatin= Chills/Flushing Restless Observation: 1= Difficult to Sit Still Pupil Size: 0= Normal to Room Light Bone or Joint Aches: 2= Severe Diffuse Aches Runny Nose/ Eye Tearin= None GI Upset > 30mins: 2= Nausea/Diarrhea Tremor Observation of Outstretched Hands: 2= Slight Tremor Visible Yawning Observation: 1= 1-2x During Session Anxiety or Irritability: 2=Irritable/Anxious Goose Flesh Skin: 3=Piloerection COWS Score: 15 S Progress Note (SOAP) Subjective: Tremors, Sweating, H/A, Diarrhea, Interrupted Sleep, Body Aches. Objective: PT. A & O X 3. NO ACUTE DISTRESS. 05/04/17 11:27 Vital Signs Temperature 95.3 F L 05/04/17 09:13 Pulse Rate 83 05/04/17 09:13 Respiratory Rate 18 05/04/17 09:13 Blood Pressure 114/79 05/04/17 09:13 O2 Sat by Pulse Oximetry (%) Laboratory Tests 05/03/17 05/04/17 05/04/17 00:00 07:00 07:00 WBC 3.4 L RBC 3.83 L Hgb 13.5 Hct 40.3 MCV 105.1 H MCH 35.3 H MCHC 33.6 RDW 12.3 D Plt Count 106 L D MPV 8.8 Sodium 143 Potassium 3.5 Chloride 105 Carbon Dioxide 33 H Anion Gap 5 L BUN 7 Creatinine 0.7 D Creat Clearance w eGFR > 60 Random Glucose 79 Calcium 8.6 Total Bilirubin 1.2 H AST 39 H D ALT 37 D Alkaline Phosphatase 89 Total Protein 6.6 Albumin 3.5 Urine Color Yellow Urine Appearance Clear Urine pH 6.0 Ur Specific [place] 1.025 Urine Protein Trace H Urine Glucose (UA) Negative Urine Ketones Trace H Urine Blood Negative Urine Nitrite Negative Urine Bilirubin Negative Urine Urobilinogen 0.2 Phenytoin 05/04/17 07:00 WBC RBC Hgb Hct MCV MCH MCHC RDW Plt Count MPV Sodium Potassium Chloride Carbon Dioxide Anion Gap BUN Creatinine Creat Clearance w eGFR Random Glucose Calcium Total Bilirubin AST ALT Alkaline Phosphatase Total Protein Albumin Urine Color Urine Appearance Urine pH Ur Specific [place] Urine Protein Urine Glucose (UA) Urine Ketones Urine Blood Urine Nitrite Urine Bilirubin Urine Urobilinogen Phenytoin < 2.5 L D LABS NOTED. PATIENT HAS HISTORY OF LOW WBC, RBC, AND PLATELET LEVELS ON PREVIOUS ADMISSIONS. RPR RESULT PENDING. 05/04/17 11:32 Assessment: 05/04/17 11:27 WITHDRAWAL SYMPTOMS. Plan: CONTINUE DETOX. DILANTIN, 300 MG PO X 1 ORDERED FOR LOW DILANTIN LEVEL. INCREASE DAILY PO FLUID INTAKE.
[2017-05-04] MEDS ORDERED: PHENYTOIN NA EXTENDED 100 MG CAPSULE (FP) PO ONE (12:30)
--- NOTE | 2017-05-04 12:49 | EKG ---
Test Reason : Blood Pressure : / mmHG Vent. Rate : 066 BPM Atrial Rate : 066 BPM P-R Int : 142 ms QRS Dur : 076 ms QT Int : 402 ms P-R-T Axes : 059 052 057 degrees QTc Int : 421 ms NORMAL SINUS RHYTHM POSSIBLE LEFT ATRIAL ENLARGEMENT SEPTAL INFARCT , AGE UNDETERMINED ABNORMAL ECG WHEN COMPARED WITH ECG OF 06-APR-2017 19:32, SEPTAL INFARCT IS NOW PRESENT Confirmed by VY RODRIGUEZ, BARBARA ([id number]) on 05/04/2017 12:49:14 PM Referred By: Confirmed By:BARBARA MCCLELLAN MD
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
--- NOTE | 2017-05-04 20:02 | PN ---
[facility] Progress Note Note: Psychiatry Attending's note : Consult by JAMEEL Sexton : appreciated. Chart reviewed.Previous records are revisited. Met with patient at bedside.Awake and resting comfortably. Well groomed.Cooperative with interviewer.Alert/fully oriented. Mildly anxious.Not psychotic.Denies suicidal/homicidal ideation,intent or plan. Well preserved thought processes.Admits to mild memory impairment (forgetful). Denies history of psychiatric hospitalizations.No history of suicide attempts. Never exposed to prescribed psychotropic medications (according to self-report). ,father of three,homeless and currently unemployed.No support network. Stable mental status.I agree with JAMEEL Sexton's findings + treatment plan.Will follow.
[2017-05-04 20:32] LABS: URINE LEUK ESTERASE Negative (NEGATIVE)
[2017-05-04] MEDS: LIDOCAINE PATCH REMOVAL MC SCH (22:09)
[2017-05-04] MEDS: THIAMINE HCL 100 MG TABLET (FP) PO SCH (22:09)
[2017-05-05] MEDS: PHENYTOIN NA EXTENDED 100 MG CAPSULE (FP) PO SCH ×3 (05:28→22:18)
[2017-05-05] MEDS: chlordiazePOXIDE HCL 25 MG CAPSULE PO SCH ×3 (05:28→17:20)
[2017-05-05] MEDS: CLOTRIMAZOLE 1% CREAM 15 GM TUBE TP SCH ×2 (10:30→23:19)
[2017-05-05] MEDS: LIDOCAINE 5% TOPICAL PATCH TP SCH (10:30)
[2017-05-05] MEDS: PRENATAL VITAMINS W/ FOLIC ACID TABLET (FP) PO SCH (10:30)
[2017-05-05] MEDS: RANITIDINE HCL 150 MG TABLET (FP) PO SCH ×2 (10:30→22:18)
[2017-05-05] MEDS: METHADONE HCL 5 MG TABLET (FOR DETOX USE ONLY) PO SCH (10:30)
[2017-05-05] MEDS: NICOTINE 21 MG/24 HOURS TOPICAL PATCH TD SCH (10:31)
--- NOTE | 2017-05-05 11:57 | PN ---
[facility] CIWA - CIWA Score Nausea/Vomitin-No Nausea/No Vomiting Muscle Tremors: 4-Moderate,w/Arms Extend Anxiety: 3 Agitation: 3 Paroxysmal Sweats: 3 Orientation: 0-Oriented Tacttile Disturbances: 2-Mild Itch/Numbness/Burn Auditory Disturbances: 0-None Visual Disturbances: 0-None Headache: 3-Moderate CIWA-Ar Total Score: 18 BHS COWS - Scale Resting Pulse: 1= [place] 81-100 Sweatin= Chills/Flushing Restless Observation: 1= Difficult to Sit Still Pupil Size: 0= Normal to Room Light Bone or Joint Aches: 2= Severe Diffuse Aches Runny Nose/ Eye Tearin= None GI Upset > 30mins: 1= Stomach Cramp Tremor Observation of Outstretched Hands: 2= Slight Tremor Visible Yawning Observation: 1= 1-2x During Session Anxiety or Irritability: 2=Irritable/Anxious Goose Flesh Skin: 3=Piloerection COWS Score: 14 S Progress Note (SOAP) Subjective: Tremors, H/A, Sweating, Body Aches. Objective: PT. A & O X 3, OBSERVED AMBULATING ON UNIT. NO ACUTE DISTRESS. 05/05/17 11:55 Vital Signs Temperature 98.5 F 05/05/17 09:16 Pulse Rate 84 05/05/17 09:16 Respiratory Rate 18 05/05/17 09:16 Blood Pressure 116/84 05/05/17 09:16 O2 Sat by Pulse Oximetry (%) Laboratory Tests 05/03/17 05/04/17 05/04/17 00:00 07:00 07:00 WBC 3.4 L RBC 3.83 L Hgb 13.5 Hct 40.3 MCV 105.1 H MCH 35.3 H MCHC 33.6 RDW 12.3 D Plt Count 106 L D MPV 8.8 Sodium 143 Potassium 3.5 Chloride 105 Carbon Dioxide 33 H Anion Gap 5 L BUN 7 Creatinine 0.7 D Creat Clearance w eGFR > 60 Random Glucose 79 Calcium 8.6 Total Bilirubin 1.2 H AST 39 H D ALT 37 D Alkaline Phosphatase 89 Total Protein 6.6 Albumin 3.5 Urine Color Yellow Urine Appearance Clear Urine pH 6.0 Ur Specific [place] 1.025 Urine Protein Trace H Urine Glucose (UA) Negative Urine Ketones Trace H Urine Blood Negative Urine Nitrite Negative Urine Bilirubin Negative Urine Urobilinogen 0.2 Ur Leukocyte Esterase Negative Phenytoin RPR Titer 05/04/17 05/04/17 07:00 07:00 WBC RBC Hgb Hct MCV MCH MCHC RDW Plt Count MPV Sodium Potassium Chloride Carbon Dioxide Anion Gap BUN Creatinine Creat Clearance w eGFR Random Glucose Calcium Total Bilirubin AST ALT Alkaline Phosphatase Total Protein Albumin Urine Color Urine Appearance Urine pH Ur Specific [place] Urine Protein Urine Glucose (UA) Urine Ketones Urine Blood Urine Nitrite Urine Bilirubin Urine Urobilinogen Ur Leukocyte Esterase Phenytoin < 2.5 L D RPR Titer Nonreactive LABS NOTED. Assessment: 05/05/17 11:55 WITHDRAWAL SYMPTOMS. Plan: CONTINUE DETOX. INCREASE DAILY PO FLUID INTAKE. ENCOURAGE AMBULATION.
[2017-05-05] MEDS: THIAMINE HCL 100 MG TABLET (FP) PO SCH (22:18)
[2017-05-05] MEDS: chlordiazePOXIDE 5 MG CAPSULE PO SCH (22:18)
[2017-05-05] MEDS: LIDOCAINE PATCH REMOVAL MC SCH (22:57)
[2017-05-06] MEDS: PHENYTOIN NA EXTENDED 100 MG CAPSULE (FP) PO SCH ×3 (05:40→22:06)
[2017-05-06] MEDS: chlordiazePOXIDE 5 MG CAPSULE PO SCH ×3 (05:40→17:17)
[2017-05-06] MEDS: BACLOFEN 10 MG TABLET (FP) PO PRN ×2 (09:59→17:21)
[2017-05-06] MEDS: RANITIDINE HCL 150 MG TABLET (FP) PO SCH ×2 (10:25→22:06)
[2017-05-06] MEDS: CLOTRIMAZOLE 1% CREAM 15 GM TUBE TP SCH ×2 (10:25→22:07)
[2017-05-06] MEDS: NICOTINE 21 MG/24 HOURS TOPICAL PATCH TD SCH (10:26)
[2017-05-06] MEDS: LIDOCAINE 5% TOPICAL PATCH TP SCH (10:26)
[2017-05-06] MEDS: PRENATAL VITAMINS W/ FOLIC ACID TABLET (FP) PO SCH (10:26)
[2017-05-06] MEDS: METHADONE HCL 5 MG TABLET (FOR DETOX USE ONLY) PO SCH (11:20)
--- NOTE | 2017-05-06 18:46 | PN ---
BHS Progress Note (SOAP) Subjective: Body Aches, Tremors, H/A, Interrupted Sleep. Objective: PT. A & O X 2 (UNCERTAIN ABOUT CURRENT DAY / DATE). PT. OBSERVED AMBULATING ON UNIT. NO ACUTE DISTRESS. 05/06/17 18:43 Vital Signs Temperature 98.3 F 05/06/17 17:21 Pulse Rate 80 05/06/17 17:21 Respiratory Rate 18 05/06/17 17:21 Blood Pressure 100/65 05/06/17 17:21 O2 Sat by Pulse Oximetry (%) Laboratory Tests 05/03/17 05/04/17 05/04/17 00:00 07:00 07:00 WBC 3.4 L RBC 3.83 L Hgb 13.5 Hct 40.3 MCV 105.1 H MCH 35.3 H MCHC 33.6 RDW 12.3 D Plt Count 106 L D MPV 8.8 Sodium 143 Potassium 3.5 Chloride 105 Carbon Dioxide 33 H Anion Gap 5 L BUN 7 Creatinine 0.7 D Creat Clearance w eGFR > 60 Random Glucose 79 Calcium 8.6 Total Bilirubin 1.2 H AST 39 H D ALT 37 D Alkaline Phosphatase 89 Total Protein 6.6 Albumin 3.5 Urine Color Yellow Urine Appearance Clear Urine pH 6.0 Ur Specific [place] 1.025 Urine Protein Trace H Urine Glucose (UA) Negative Urine Ketones Trace H Urine Blood Negative Urine Nitrite Negative Urine Bilirubin Negative Urine Urobilinogen 0.2 Ur Leukocyte Esterase Negative Phenytoin RPR Titer 05/04/17 05/04/17 07:00 07:00 WBC RBC Hgb Hct MCV MCH MCHC RDW Plt Count MPV Sodium Potassium Chloride Carbon Dioxide Anion Gap BUN Creatinine Creat Clearance w eGFR Random Glucose Calcium Total Bilirubin AST ALT Alkaline Phosphatase Total Protein Albumin Urine Color Urine Appearance Urine pH Ur Specific [place] Urine Protein Urine Glucose (UA) Urine Ketones Urine Blood Urine Nitrite Urine Bilirubin Urine Urobilinogen Ur Leukocyte Esterase Phenytoin < 2.5 L D RPR Titer Nonreactive LABS NOTED. Assessment: 05/06/17 18:44 WITHDRAWAL SYMPTOMS. Plan: CONTINUE DETOX.
[2017-05-06] MEDS: chlordiazePOXIDE HCL 10 MG CAPSULE PO SCH (22:06)
[2017-05-06] MEDS: THIAMINE HCL 100 MG TABLET (FP) PO SCH (22:06)
[2017-05-07] MEDS: chlordiazePOXIDE HCL 10 MG CAPSULE PO SCH ×2 (05:16→10:18)
[2017-05-07] MEDS: PHENYTOIN NA EXTENDED 100 MG CAPSULE (FP) PO SCH (05:16)
[2017-05-07] MEDS: BACLOFEN 10 MG TABLET (FP) PO PRN (05:19)
--- NOTE | 2017-05-07 09:03 | EKG ---
Test Reason : Blood Pressure : / mmHG Vent. Rate : 069 BPM Atrial Rate : 069 BPM P-R Int : 140 ms QRS Dur : 074 ms QT Int : 400 ms P-R-T Axes : 070 029 044 degrees QTc Int : 428 ms NORMAL SINUS RHYTHM NORMAL ECG WHEN COMPARED WITH ECG OF 03-MAY-2017 21:19, CRITERIA FOR SEPTAL INFARCT ARE NO LONGER PRESENT Confirmed by BARBARA MCCLELLAN MD ([id number]) on 05/07/2017 9:03:06 AM Referred By: Confirmed By:BARBARA MCCLELLAN MD
[2017-05-07 09:37] VITALS: BP 130/84; PULSE 83; TEMP 97.4
[2017-05-07] MEDS ORDERED: METHADONE HCL 10 MG TABLET (FOR DETOX USE ONLY) PO SCH (10:00)
[2017-05-07] MEDS ORDERED: METHADONE HCL 5 MG TABLET (FOR DETOX USE ONLY) PO SCH (10:00)
[2017-05-07] MEDS: NICOTINE 21 MG/24 HOURS TOPICAL PATCH TD SCH (10:18)
[2017-05-07] MEDS: RANITIDINE HCL 150 MG TABLET (FP) PO SCH (10:18)
[2017-05-07] MEDS: CLOTRIMAZOLE 1% CREAM 15 GM TUBE TP SCH (10:18)
[2017-05-07] MEDS: PRENATAL VITAMINS W/ FOLIC ACID TABLET (FP) PO SCH (10:18)
--- NOTE | 2017-05-07 13:40 | DS ---
[facility] Detox Discharge Summary Admission Date: 05/03/17 Discharge Date: 05/07/17 - History Present History: Alcohol Dependence, Opioid Dependence Additional Comments: PATIENT WAS ORIGINALLY SCHEDULED TO GO TO [facility]HAB FOR AFTERCARE. HOWEVER, JUST PRIOR TO BEING TAKEN OVER TO REHAB UNIT, PATIENT CHANGED HIS MIND AND ELECTED TO GO HOME. PATIENT LEFT DETOX UNIT BEFORE ANY PRESCRIPTIONS FOR HOME MEDICATIONS FOR FOLLOW-UP CARE COULD BE OFFERED. PATIENT LEFT DETOX UNIT IN STABLE MEDICAL CONDITION. Pertinent Past History: Asthma, History of Seizures, Depression, Nicotine Dependence, Weight Loss, GERD , Chronic Back Pain, Use of Cane as Ambulatory Aid, Swelling of Bilateral Ankles and Feet. - Physical Exam Results Vital Signs: Vital Signs Temperature 97.4 F L 05/07/17 09:37 Pulse Rate 83 05/07/17 09:37 Respiratory Rate 18 05/07/17 09:37 Blood Pressure 130/84 05/07/17 09:37 O2 Sat by Pulse Oximetry (%) Pertinent Admission Physical Exam Findings: WITHDRAWAL SYMPTOMS. Laboratory Tests 05/03/17 05/04/17 05/04/17 00:00 07:00 07:00 WBC 3.4 L RBC 3.83 L Hgb 13.5 Hct 40.3 MCV 105.1 H MCH 35.3 H MCHC 33.6 RDW 12.3 D Plt Count 106 L D MPV 8.8 Sodium 143 Potassium 3.5 Chloride 105 Carbon Dioxide 33 H Anion Gap 5 L BUN 7 Creatinine 0.7 D Creat Clearance w eGFR > 60 Random Glucose 79 Calcium 8.6 Total Bilirubin 1.2 H AST 39 H D ALT 37 D Alkaline Phosphatase 89 Total Protein 6.6 Albumin 3.5 Urine Color Yellow Urine Appearance Clear Urine pH 6.0 Ur Specific [place] 1.025 Urine Protein Trace H Urine Glucose (UA) Negative Urine Ketones Trace H Urine Blood Negative Urine Nitrite Negative Urine Bilirubin Negative Urine Urobilinogen 0.2 Ur Leukocyte Esterase Negative Phenytoin RPR Titer 05/04/17 05/04/17 07:00 07:00 WBC RBC Hgb Hct MCV MCH MCHC RDW Plt Count MPV Sodium Potassium Chloride Carbon Dioxide Anion Gap BUN Creatinine Creat Clearance w eGFR Random Glucose Calcium Total Bilirubin AST ALT Alkaline Phosphatase Total Protein Albumin Urine Color Urine Appearance Urine pH Ur Specific [place] Urine Protein Urine Glucose (UA) Urine Ketones Urine Blood Urine Nitrite Urine Bilirubin Urine Urobilinogen Ur Leukocyte Esterase Phenytoin < 2.5 L D RPR Titer Nonreactive LABS NOTED. - Treatment Hospital Course: Detox Protocol Followed, Detoxed Safely, Responded well, Discharged Condition Good Patient has Accepted a Rehab Referral to: PT ORIGINALLY SCHEDULED TO GO TO REHAB ; HOWEVER, DECIDED TO GO HOME INSTEAD - Diagnosis (1) Alcohol dependence with uncomplicated withdrawal Status: Acute (2) Opioid dependence with withdrawal Status: Acute (3) Nicotine dependence Status: Acute Qualifiers: Nicotine product type: cigarettes Substance use status: in withdrawal Qualified Code(s): F17.213 - Nicotine dependence, cigarettes, with withdrawal (4) Asthma Status: Chronic Qualifiers: Asthma severity: moderate Asthma complication type: with status asthmaticus (5) Bilateral swelling of feet and ankles Status: Chronic (6) Chronic back pain Status: Chronic Qualifiers: Back pain location: low back pain Back pain laterality: bilateral Sciatica presence: without sciatica Qualified Code(s): M54.5 - Low back pain; G89.29 - Other chronic pain; G89.29 - Other chronic pain (7) GERD (gastroesophageal reflux disease) Status: Chronic Qualifiers: Esophagitis presence: without esophagitis Qualified Code(s): K21.9 - Gastro -esophageal reflux disease without esophagitis (8) Seizure Status: Chronic (9) Use of cane as ambulatory aid Status: Chronic - AMA Did Patient Leave Against Medical Advice: No
[2017-05-08] MEDS ORDERED: METHADONE HCL 5 MG TABLET (FOR DETOX USE ONLY) PO SCH (06:00)
== END 2017-05-07 12:15 | disposition home or self-care (01) | DRG 773 ==
LOC: YASAS 15:34 → Y3N 19:35
PROVIDERS: ADMIT Internal Medicine; ATTEND Internal Medicine
PROC: HZ2ZZZZ Detoxification Services for Substance Abuse Treatment (ICD-10-PCS; principal; 2017-05-03)
DX: F11.23 Opioid dependence with withdrawal (principal); F10.230 Alcohol dependence with withdrawal, uncomplicated; F12.20 Cannabis dependence, uncomplicated; F17.213 Nicotine dependence, cigarettes, with withdrawal; G40.909 Epilepsy, unspecified, not intractable, without status epilepticus; J45.42 Moderate persistent asthma with status asthmaticus; K21.9 Gastro-esophageal reflux disease without esophagitis; M54.5 Low back pain; G89.29 Other chronic pain; M25.471 Effusion, right ankle; M25.472 Effusion, left ankle; R26.89 Other abnormalities of gait and mobility; Z99.89 Dependence on other enabling machines and devices; R63.4 Abnormal weight loss; Z68.25 Body mass index [BMI] 25.0-25.9, adult
CPT/HCPCS: 36415; 80053; 80185; 81003; 85027; 86593; 93005; 93010; J0475

== ENCOUNTER 2017-08-19 08:48 | Inpatient (IN) | payer OTHER ==
[2017-08-19 10:07] VITALS: BMI 24.2
--- NOTE | 2017-08-19 12:06 | HP ---
COWS - Scale Resting Pulse: 1= [place] 81-100 Sweatin= Chills/Flushing Restless Observation: 1= Difficult to Sit Still Pupil Size: 1= Pupils >than Normal Bone or Joint Aches: 1= Mild Discomfort Runny Nose/ Eye Tearin= Nasal Congestion GI Upset > 30mins: 2= Nausea/Diarrhea Tremor Observation: 2= Slight Tremor Visible Yawning Observation: 1= 1-2x During Session Anxiety or Irritability: 2=Irritable/Anxious Goose Flesh Skin: 3=Piloerection COWS Score: 16 CIWA Score - CIWA Score Nausea/Vomitin Muscle Tremors: 3 Anxiety: 3 Agitation: 3 Paroxysmal Sweats: 3 Orientation: 0-Oriented Tacttile Disturbances: 1-Very Mild Itch/Numbness Auditory Disturbances: 0-None Visual Disturbances: 0-None Headache: 1-Very Mild CIWA-Ar Total Score: 17 Admission [facility] Chief Complaint: alcohol ad heroin withdrawal sx Allergies/Adverse Reactions: Allergies Allergy/AdvReac Type Severity Reaction Status Date / Time No Known Allergies Allergy Verified 08/19/17 10:17 History of Present Illness: 57 yo m with h/o oud and alcohol use diorder, multiple detox at [facility] smokes 1PPD andmairjuan daily denies bnezodiazepien use but was in deto xseveral weeks ago. reports h/o withdrawal seizures when he does not use, no DTS thirsy, anxieyt depression, and insomnia Exam Limitations: No Limitations - Ebola screening Have you traveled outside of the country in the last 21 days: No (N) Have you had contact with anyone from an Ebola affected area: No Have you been sick,other than usual withdrawal symptoms: No Do you have a fever: No - Review of Systems Constitutional: Chills, Night Sweats, Changes in sleep, Unintentional Wgt. Loss EENT: reports: Tearing, Nose Congestion Respiratory: reports: No Symptoms reported Cardiac: reports: No Symptoms Reported GI: reports: Diarrhea, Nausea, Poor Appetite, Poor Fluid Intake, Vomiting, Indigestion, Abdominal cramping : reports: No Symptoms Reported Musculoskeletal: reports: Back Pain, Muscle Pain Integumentary: reports: Flushing, Sweating Neuro: reports: Headache, Numbness, Seizure (last seizure from alcohol withdrawal 1 week ago), Tingling, Tremors Endocrine: reports: Increased Thirst Hematology: reports: No Symptoms Reported Psychiatric: reports: Judgement Intact, Mood/Affect Appropiate, Orientated x3, Anxious, Depressed Other Systems: Reviewed and Negative Patient History - Patient Medical History Hx Anemia: No Hx Asthma: Yes Hx Chronic Obstructive Pulmonary Disease (COPD): No Hx Cancer: No Hx Cardiac Disorders: No Hx Congestive Heart Failure: No Hx Hypertension: No Hx Hypercholesterolemia: No Hx Pacemaker: No HX Cerebrovascular Accident: No Hx Seizures: Yes (alcohol related-last episode was 1 weeks ago) Hx Dementia: No Hx Diabetes: No Hx Gastrointestinal Disorders: No Hx Liver Disease: No Hx Genitourinary Disorders: No Hx Sexually Transmitted Disorders: No Hx Renal Disease (ESRD): No Hx Thyroid Disease: No Hx Human Immunodeficiency Virus (HIV): No Hx Hepatitis C: No Hx Depression: Yes Hx Suicide Attempt: No (no si at this time) Hx Bipolar Disorder: No Hx Schizophrenia: No - Patient Surgical History Past Surgical History: Yes Hx Neurologic Surgery: No Hx Cataract Extraction: No Hx Cardiac Surgery: No Hx Lung Surgery: No Hx Breast Surgery: No Hx Breast Biopsy: No Hx Abdominal Surgery: No Hx Appendectomy: No Hx Cholecystectomy: No Hx Genitourinary Surgery: No Hx Section: No Hx Orthopedic Surgery: No Other Surgical History: right inguinal hernia repair Anesthesia Reaction: No - PPD History Previous Implant?: Yes Documented Results: Negative w/proof Implanted On Prior [facility] Admission?: Yes Date: 01/21/17 Results: 0 mm - Smoking Cessation Smoking history: Current every day smoker Have you smoked in the past 12 months: Yes Aproximately how many cigarettes per day: 20 Cigars Per Day: 0 Hx Chewing Tobacco Use: No Initiated information on smoking cessation: Yes 'Breaking Loose' booklet given: 08/19/17 - Substances Abused Heroin Route: Inhalation Frequency: Daily Amount used: 10 bags Age of first use: 31 Date of Last Use: 08/18/17 Alcohol-vodka/beer Route: Oral Frequency: Daily Amount used: 2 pts./2-6 pks. Age of first use: 11 Date of Last Use: 08/18/17 Marijuana Route: Smoking Frequency: Daily Amount used: $5 Age of first use: 14 Date of Last Use: 08/18/17 Family Disease History - Family Disease History Family Disease History: Heart Disease: Sister, Other: Father (no contact), Mother (no contact), Brother (no contact), Sister Admission Physical Exam S - Vital Signs Vital Signs: Vital Signs - 24 hr 08/19/17 10:05 Temperature 97.1 F L Pulse Rate 83 Respiratory 20 Rate Blood Pressure 121/72 - Physical General Appearance: Yes: No Apparent Distress, Nourished, Appropriately Dressed , Disheveled, Mild Distress, Intoxicated, Thin, Tremorous, Irritable, Sweating, Anxious HEENTM: Yes: EOMI, Hearing grossly Normal, Normocephalic, Normal Voice, JUDY, Pharynx Normal, Nasal Congestion, Rhinorrhea Respiratory: Yes: Within Normal Limits, Chest Non-Tender, Lungs Clear, Normal Breath Sounds, No Respiratory Distress, No Accessory Muscle Use Neck: Yes: Within Normal Limits, No masses,lesions,Nodules, Supple, Trachea in good position Breast: Yes: Breast Exam Deferred Cardiology: Yes: Within Normal Limits, Regular Rhythm, Regular Rate, S1, S2 Abdominal: Yes: Within Normal Limits, Normal Bowel Sounds, Non Tender, Flat, Soft, Increased Bowel Sounds Genitourinary: Yes: Within Normal Limits Back: Yes: Normal Inspection, Muscle Spasm Musculoskeletal: Yes: full range of Motion, Gait Steady, Pelvis Stable, Back pain Extremities: Yes: Normal Capillary Refill, Normal Inspection, Normal Range of Motion, Tremors 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 NML intact, Fully Oriented, Alert, Motor Strength 5/5, Normal Response Integumentary: Yes: Normal Color, Warm, Diaphoresis Lymphatic: Yes: Within Normal Limits - Addiitonal Findings: withdrawal sx - Diagnostic (1) Alcohol dependence with uncomplicated withdrawal Current Visit: No Status: Acute (2) Drug-induced mood disorder Current Visit: No Status: Acute (3) Nicotine dependence Current Visit: No Status: Acute Qualifiers: Nicotine product type: cigarettes Substance use status: in withdrawal Qualified Code(s): F17.213 - Nicotine dependence, cigarettes, with withdrawal (4) Opioid dependence with withdrawal Current Visit: No Status: Acute (5) Weight loss Current Visit: No Status: Acute (6) Asthma Current Visit: No Status: Chronic Qualifiers: Asthma severity: moderate Asthma complication type: with status asthmaticus (7) Cannabis dependence, uncomplicated Current Visit: No Status: Chronic (8) Chronic back pain Current Visit: No Status: Chronic Qualifiers: Back pain location: low back pain Back pain laterality: bilateral Sciatica presence: without sciatica Qualified Code(s): M54.5 - Low back pain; G89.29 - Other chronic pain; G89.29 - Other chronic pain (9) GERD (gastroesophageal reflux disease) Current Visit: No Status: Chronic Qualifiers: Esophagitis presence: without esophagitis Qualified Code(s): K21.9 - Gastro -esophageal reflux disease without esophagitis (10) Seizure Current Visit: No Status: Chronic (11) Use of cane as ambulatory aid Current Visit: No Status: Chronic Comment: X15 YEARS Cleared for Admission [facility] - Detox or Rehab [facility] Level of Care: Medically Managed Detox Regimen/Protocol: Methadone/Librium [facility] Breath Alcohol Content Breath Alcohol Content: 0.184 Urine Drug Screen - Results Drug Screen Negative: No Urine Drug Screen Results: THC-Marijuana, OPI-Opiates, BZO-Benzodiazepines
[2017-08-19] MEDS ORDERED: hydrOXYzine PAMOATE 50 MG CAPSULE (FP) PO PRN (12:13)
[2017-08-19] MEDS ORDERED: MAGNESIUM HYDROX 2400MG/30ML ORAL SUSPENSION 30 ML CUP PO PRN (12:13)
[2017-08-19] MEDS ORDERED: chlordiazePOXIDE HCL 25 MG CAPSULE PO PRN (12:13)
[2017-08-19] MEDS ORDERED: MAGNESIUM CITRATE 300 ML BOTTLE PO PRN (12:13)
[2017-08-19] MEDS ORDERED: NICOTINE POLACRILEX 2 MG GUM BUC PRN (12:13)
[2017-08-19] MEDS ORDERED: MENTHOL/PHENOL 1 EACH UD MM PRN (12:13)
[2017-08-19] MEDS ORDERED: LOPERAMIDE HCL 2 MG CAPSULE PO PRN (12:13)
[2017-08-19] MEDS ORDERED: P-EPHED 60MG/TRIPROLIDI 2.5MG TABLET PO PRN (12:13)
[2017-08-19] MEDS ORDERED: ACETAMINOPHEN 325 MG TABLET (FP) PO PRN (12:13)
[2017-08-19] MEDS ORDERED: guaiFENesin/D-METHORPHAN HB 10 ML UNIT-DOSE CUPS PO PRN (12:13)
[2017-08-19] MEDS ORDERED: MAG HYDROX/AL HYDROX/SIMETH 30 ML UNIT-DOSE CUP PO PRN (12:13)
[2017-08-19] MEDS ORDERED: chlordiazePOXIDE HCL 25 MG CAPSULE PO ONE (12:30)
[2017-08-19] MEDS ORDERED: METHADONE HCL 10 MG TABLET (FOR DETOX USE ONLY) PO ONE ×2 (12:35→23:00)
[2017-08-19] MEDS: NICOTINE 21 MG/24 HOURS TOPICAL PATCH TD SCH (14:18)
[2017-08-19] MEDS: IBUPROFEN 400 MG TABLET (FP) PO PRN (14:41)
--- NOTE | 2017-08-19 17:11 | CONSULT ---
[facility] Psychiatric Consult - Data Date of interview: 08/19/17 Admission source: [facility] Identifying data: Readmission to [facility] for this 57 y/o male seeking detox treatment on for alcohol,cannabis and heroin dependence.Patient is ,a father of three,domiciled,unemployed and deprived of any source of income. Substance Abuse History: Discussed with the patient.Mr Ott admits to a 30+ year history of alcohol and heroin dependence. See details in current [facility] report as follows : Have you smoked in the past 12 months: Yes. Aproximately how many cigarettes per day: 20. Cigars Per Day: 0. Hx Chewing Tobacco Use: No. Initiated information on smoking cessation: Yes. 'Breaking Loose' booklet given: 08/19/17. - Substances Abused. Heroin. Route: Inhalation. Frequency: Daily. Amount used: 10 bags. Age of first use: 31. Date of Last Use: 08/18/17. Alcohol-vodka/beer. Route: Oral. Frequency: Daily. Amount used: 2 pts./2-6 pks. Age of first use: 11. Date of Last Use: 08/18/17. Marijuana. Route: Smoking. Frequency: Daily. Amount used: $5. Age of first use: 14. Date of Last Use: 08/18/17 Medical History: Bronchial asthma,lower back pain,withdrawal-related seizures and a history of right inguinal herniorraphy. Psychiatric History: History of two psychiatric hospitalizations in [facility].No recall of diagnoses.Vague and sketchy historian.Mr Ott states that he was prescribed psychotropic medications (unable to remember names of the drugs). He also reports that he has not been adherent to the medications for about one year. No contact with psychiatric OPD care providers.Patient endorses a history of one suicide attempt via deliberate ingestion of a household chemical (chlorox) and episodes of suicidal ideation (hanging or drowning by jumping over a bridge). Physical/Sexual Abuse/Trauma History: Patient denies history of abuse. Additional Comment: Urine Drug Screen Results: THC-Marijuana, OPI-Opiates, BZO- Benzodiazepines.Noted. Mental Status Exam - Mental Status Exam Alert and Oriented to: Time, Place, Person Cognitive Function: Good Patient Appearance: Well Groomed (tattoos on both forearms) Mood: Nervous, Withdrawn, Anxious Affect: Mood Congruent, Constricted Patient Behavior: Fatigued, Appropriate, Cooperative Speech Pattern: Clear, Appropriate Voice Loudness: Normal Thought Process: Intact, Goal Oriented Thought Disorder: Not Present Hallucinations: Denies Suicidal Ideation: Denies Homicidal Ideation: Denies Insight/Judgement: Poor Sleep: Fair Appetite: Good Muscle strength/Tone: Normal Gait/Station: Normal Psychiatric Findings - Problem List ([place] 1, 2,3) (1) Opioid dependence with withdrawal Current Visit: Yes Status: Acute (2) Alcohol dependence with uncomplicated withdrawal Current Visit: Yes Status: Acute (3) Cannabis dependence, uncomplicated Current Visit: Yes Status: Chronic (4) Nicotine dependence Current Visit: Yes Status: Chronic Qualifiers: Nicotine product type: cigarettes Substance use status: in withdrawal Qualified Code(s): F17.213 - Nicotine dependence, cigarettes, with withdrawal (5) Drug-induced mood disorder Current Visit: Yes Status: Acute - Initial Treatment Plan Initial Treatment Plan: Records are revisited.Sleep hygiene.Detoxification in progress.Observation.
[2017-08-19] MEDS: chlordiazePOXIDE HCL 25 MG CAPSULE PO SCH ×2 (17:40→22:24)
[2017-08-19] MEDS: THIAMINE HCL 100 MG TABLET (FP) PO SCH (22:24)
[2017-08-20] MEDS: chlordiazePOXIDE HCL 25 MG CAPSULE PO SCH ×4 (05:51→22:39)
[2017-08-20] MEDS ORDERED: METHADONE HCL 10 MG TABLET (FOR DETOX USE ONLY) PO SCH (10:00)
[2017-08-20 10:01] LABS: HEMATOCRIT 39.5 % (35.4-49); HEMOGLOBIN 13.3 GM/dL (11.7-16.9); MCH 35.5 pg (25.7-33.7); MCHC 33.6 g/dl (32.0-35.9); MEAN CELL VOLUME 105.7 fl (80-96); MEAN PLT VOLUME 8.2 fl (7.5-11.1); PLATELET COUNT 238 K/MM3 (134-434); RBC 3.74 M/mm3 (4.00-5.60); RDW 13.4 % (11.9-15.9); WHITE BLOOD COUNT 4.2 K/mm3 (4.0-10.0)
[2017-08-20] MEDS: NICOTINE 21 MG/24 HOURS TOPICAL PATCH TD SCH (10:05)
[2017-08-20] MEDS: PRENATAL VITAMINS W/ FOLIC ACID TABLET (FP) PO SCH (10:05)
[2017-08-20 10:22] LABS: URINE APPEARANCE TURBID; URINE BILIRUBIN NEGATIVE (NEGATIVE); URINE BLOOD NEGATIVE (NEGATIVE); URINE COLOR AMBER; URINE GLUCOSE (UA) NEGATIVE (NEGATIVE); URINE KETONE NEGATIVE (NEGATIVE); URINE LEUK ESTERASE NEGATIVE (NEGATIVE); URINE NITRITE NEGATIVE (NEGATIVE); URINE PROTEIN NEGATIVE (NEGATIVE); URINE UROBILINOGEN NEGATIVE mg/dL (0.2-1.0)
[2017-08-20 10:27] LABS: ANION GAP 12 (8-16); BLOOD UREA NITROGEN 14 mg/dL (7-18); CALCIUM 8.7 mg/dL (8.5-10.1); CHLORIDE 106 mmol/L (98-107); CO2 25 mmol/L (21-32); CREATININE 0.9 mg/dL (0.7-1.3); GLUCOSE,RANDOM 108 mg/dL (74-106); POTASSIUM 3.8 mmol/L (3.5-5.1); SGOT/AST 28 U/L (15-37); SGPT/ALT 29 U/L (12-78); SODIUM 143 mmol/L (136-145)
[2017-08-20 10:29] LABS: ALK PHOS 66 U/L (45-117); BILIRUBIN,TOTAL 0.7 mg/dL (0.2-1.0)
[2017-08-20] MEDS: CYCLOBENZAPRINE HCL 10 MG TABLET (FP) PO PRN (17:48)
--- NOTE | 2017-08-20 17:50 | PN ---
S CIWA - CIWA Score Nausea/Vomitin-No Nausea/No Vomiting Muscle Tremors: 3 Anxiety: 4-Mod. Anxious/Guarded Agitation: 4-Moderately Restless Paroxysmal Sweats: 3 Orientation: 0-Oriented Tacttile Disturbances: 2-Mild Itch/Numbness/Burn Auditory Disturbances: 0-None Visual Disturbances: 2-Mild Sensitivity Headache: 0-None Present CIWA-Ar Total Score: 18 BHS COWS - Scale Resting Pulse: 0= [place] 80 or Below Sweatin= Chills/Flushing Restless Observation: 1= Difficult to Sit Still Pupil Size: 0= Normal to Room Light Bone or Joint Aches: 2= Severe Diffuse Aches Runny Nose/ Eye Tearin= None GI Upset > 30mins: 2= Nausea/Diarrhea Tremor Observation of Outstretched Hands: 2= Slight Tremor Visible Yawning Observation: 1= 1-2x During Session Anxiety or Irritability: 2=Irritable/Anxious Goose Flesh Skin: 3=Piloerection COWS Score: 14 BHS Progress Note (SOAP) Subjective: Tremors, Sweating, Body Aches, Anxious, Diarrhea. Objective: PATIENT A & O X 3, OBSERVED AMBULATING ON UNIT. NO ACUTE DISTRESS. 08/20/17 17:49 Vital Signs Temperature 97.0 F L 08/20/17 15:12 Pulse Rate 62 08/20/17 15:12 Respiratory Rate 18 08/20/17 15:12 Blood Pressure 129/81 08/20/17 15:12 O2 Sat by Pulse Oximetry (%) Laboratory Tests 08/20/17 08/20/17 08/20/17 06:00 06:00 06:00 WBC 4.2 RBC 3.74 L Hgb 13.3 Hct 39.5 MCV 105.7 H MCH 35.5 H MCHC 33.6 RDW 13.4 Plt Count 238 D MPV 8.2 Sodium 143 Potassium 3.8 Chloride 106 Carbon Dioxide 25 D Anion Gap 12 BUN 14 D Creatinine 0.9 D Creat Clearance w eGFR > 60 Random Glucose 108 H D Calcium 8.7 Total Bilirubin 0.7 D AST 28 D ALT 29 D Alkaline Phosphatase 66 D Total Protein 8.0 D Albumin 4.0 Urine Color Urine Appearance Urine pH Ur Specific [place] Urine Protein Urine Glucose (UA) Urine Ketones Urine Blood Urine Nitrite Urine Bilirubin Urine Urobilinogen Ur Leukocyte Esterase RPR Titer Nonreactive 08/20/17 08:50 WBC RBC Hgb Hct MCV MCH MCHC RDW Plt Count MPV Sodium Potassium Chloride Carbon Dioxide Anion Gap BUN Creatinine Creat Clearance w eGFR Random Glucose Calcium Total Bilirubin AST ALT Alkaline Phosphatase Total Protein Albumin Urine Color [place] Urine Appearance Turbid Urine pH 5.0 Ur Specific [place] 1.024 Urine Protein Negative Urine Glucose (UA) Negative Urine Ketones Negative Urine Blood Negative Urine Nitrite Negative Urine Bilirubin Negative Urine Urobilinogen Negative Ur Leukocyte Esterase Negative RPR Titer LABS NOTED. Assessment: 08/20/17 17:49 WITHDRAWAL SYMPTOMS. Plan: CONTINUE DETOX. INCREASE DAILY PO FLUID INTAKE. PRN FLEXERIL FOR BODY ACHES / MUSCLE SPASMS.
--- NOTE | 2017-08-20 18:46 | EKG ---
Test Reason : Blood Pressure : / mmHG Vent. Rate : 080 BPM Atrial Rate : 080 BPM P-R Int : 150 ms QRS Dur : 080 ms QT Int : 382 ms P-R-T Axes : 068 068 064 degrees QTc Int : 440 ms NORMAL SINUS RHYTHM NORMAL ECG WHEN COMPARED WITH ECG OF 07-MAY-2017 09:42, NO SIGNIFICANT CHANGE WAS FOUND Confirmed by DUSTIN ESTRADA MD ([id number]) on 08/20/2017 6:46:27 PM Referred By: Confirmed By:DUSTIN ESTRADA MD
[2017-08-20] MEDS: ALBUTEROL SO4 18 GM HFA INHALER IH PRN (19:25)
[2017-08-20] MEDS: THIAMINE HCL 100 MG TABLET (FP) PO SCH (22:39)
[2017-08-20] MEDS: diphenhydrAMINE HCL 25 MG CAPSULE (FP) PO PRN (22:40)
[2017-08-21] MEDS: chlordiazePOXIDE HCL 25 MG CAPSULE PO SCH ×2 (05:53→10:21)
[2017-08-21] MEDS: NICOTINE 21 MG/24 HOURS TOPICAL PATCH TD SCH (10:21)
[2017-08-21] MEDS: PRENATAL VITAMINS W/ FOLIC ACID TABLET (FP) PO SCH (10:21)
[2017-08-21] MEDS: METHADONE HCL 5 MG TABLET (FOR DETOX USE ONLY) PO SCH (10:21)
[2017-08-21] MEDS: ALBUTEROL SO4 18 GM HFA INHALER IH PRN (10:35)
--- NOTE | 2017-08-21 15:49 | PN ---
S CIWA - CIWA Score Nausea/Vomitin Muscle Tremors: 3 Anxiety: 3 Agitation: 3 Paroxysmal Sweats: 3 Orientation: 0-Oriented Tacttile Disturbances: 1-Very Mild Itch/Numbness Auditory Disturbances: 0-None Visual Disturbances: 0-None Headache: 2-Mild CIWA-Ar Total Score: 17 BHS COWS - Scale Resting Pulse: 0= [place] 80 or Below Sweatin= Chills/Flushing Restless Observation: 3= Extraneous Movement Pupil Size: 0= Normal to Room Light Bone or Joint Aches: 2= Severe Diffuse Aches Runny Nose/ Eye Tearin= Runny Nose/Eyes GI Upset > 30mins: 1= Stomach Cramp Tremor Observation of Outstretched Hands: 2= Slight Tremor Visible Yawning Observation: 0= None Anxiety or Irritability: 2=Irritable/Anxious Goose Flesh Skin: 0=Smooth Skin COWS Score: 13 BHS Progress Note (SOAP) Subjective: Tremor, chills, sweating, headache, stomach ache, interrupted sleep Objective: 08/21/17 15:48 Last Vital Signs Temp Pulse Resp BP Pulse Ox 98.6 F 70 16 117/68 08/21/17 14:43 08/21/17 14:43 08/21/17 14:43 08/21/17 14:43 Laboratory Tests 08/20/17 08/20/17 08/20/17 06:00 06:00 06:00 WBC 4.2 RBC 3.74 L Hgb 13.3 Hct 39.5 MCV 105.7 H MCH 35.5 H MCHC 33.6 RDW 13.4 Plt Count 238 D MPV 8.2 Sodium 143 Potassium 3.8 Chloride 106 Carbon Dioxide 25 D Anion Gap 12 BUN 14 D Creatinine 0.9 D Creat Clearance w eGFR > 60 Random Glucose 108 H D Calcium 8.7 Total Bilirubin 0.7 D AST 28 D ALT 29 D Alkaline Phosphatase 66 D Total Protein 8.0 D Albumin 4.0 Urine Color Urine Appearance Urine pH Ur Specific [place] Urine Protein Urine Glucose (UA) Urine Ketones Urine Blood Urine Nitrite Urine Bilirubin Urine Urobilinogen Ur Leukocyte Esterase RPR Titer Nonreactive 08/20/17 08:50 WBC RBC Hgb Hct MCV MCH MCHC RDW Plt Count MPV Sodium Potassium Chloride Carbon Dioxide Anion Gap BUN Creatinine Creat Clearance w eGFR Random Glucose Calcium Total Bilirubin AST ALT Alkaline Phosphatase Total Protein Albumin Urine Color Sandie Urine Appearance Turbid Urine pH 5.0 Ur Specific [place] 1.024 Urine Protein Negative Urine Glucose (UA) Negative Urine Ketones Negative Urine Blood Negative Urine Nitrite Negative Urine Bilirubin Negative Urine Urobilinogen Negative Ur Leukocyte Esterase Negative RPR Titer Labs noted Assessment: 08/21/17 15:48 Withdrawal symptoms Plan: Continue detox Encouraged increased PO hydration (water)
[2017-08-21] MEDS: chlordiazePOXIDE 5 MG CAPSULE PO SCH ×2 (17:28→22:02)
[2017-08-21] MEDS: CYCLOBENZAPRINE HCL 10 MG TABLET (FP) PO PRN (17:32)
[2017-08-21] MEDS: IBUPROFEN 400 MG TABLET (FP) PO PRN (17:32)
[2017-08-21] MEDS: THIAMINE HCL 100 MG TABLET (FP) PO SCH (22:01)
[2017-08-21] MEDS: diphenhydrAMINE HCL 25 MG CAPSULE (FP) PO PRN (22:02)
[2017-08-22] MEDS: chlordiazePOXIDE 5 MG CAPSULE PO SCH ×2 (05:37→10:25)
[2017-08-22] MEDS: METHADONE HCL 5 MG TABLET (FOR DETOX USE ONLY) PO SCH (10:25)
[2017-08-22] MEDS: NICOTINE 21 MG/24 HOURS TOPICAL PATCH TD SCH (10:25)
[2017-08-22] MEDS: PRENATAL VITAMINS W/ FOLIC ACID TABLET (FP) PO SCH (10:25)
--- NOTE | 2017-08-22 12:10 | PN ---
BHS Progress Note (SOAP) Subjective: sweats shakes Objective: 08/22/17 12:10 Flushed A & O x 3, no acute distress Vital Signs Temperature 97.4 F L 08/22/17 09:23 Pulse Rate 66 08/22/17 09:23 Respiratory Rate 20 08/22/17 09:23 Blood Pressure 107/73 08/22/17 09:23 O2 Sat by Pulse Oximetry (%) Assessment: 08/22/17 12:10 withdrawal sx Plan: continue detox
[2017-08-22] MEDS: chlordiazePOXIDE HCL 10 MG CAPSULE PO SCH ×2 (16:57→22:19)
[2017-08-22] MEDS: ALBUTEROL SO4 18 GM HFA INHALER IH PRN (16:58)
[2017-08-22] MEDS: CYCLOBENZAPRINE HCL 10 MG TABLET (FP) PO PRN (17:01)
[2017-08-22] MEDS: THIAMINE HCL 100 MG TABLET (FP) PO SCH (22:19)
[2017-08-22] MEDS: diphenhydrAMINE HCL 25 MG CAPSULE (FP) PO PRN (22:20)
[2017-08-23] MEDS: chlordiazePOXIDE HCL 10 MG CAPSULE PO SCH ×2 (05:23→10:35)
[2017-08-23] MEDS ORDERED: METHADONE HCL 10 MG TABLET (FOR DETOX USE ONLY) PO SCH (10:00)
[2017-08-23] MEDS: PRENATAL VITAMINS W/ FOLIC ACID TABLET (FP) PO SCH (10:35)
[2017-08-23] MEDS: NICOTINE 21 MG/24 HOURS TOPICAL PATCH TD SCH (10:36)
[2017-08-23] MEDS: IBUPROFEN 400 MG TABLET (FP) PO PRN (10:38)
[2017-08-23] MEDS: CYCLOBENZAPRINE HCL 10 MG TABLET (FP) PO PRN ×2 (10:38→17:25)
--- NOTE | 2017-08-23 12:39 | PN ---
BHS Progress Note (SOAP) Subjective: Fatigue, Body Aches, Tremors. Objective: PATIENT A & O X 2 (UNCERTAIN ABOUT CURRENT DAY/ DATE). NO ACUTE DISTRESS. 08/23/17 12:38 Vital Signs Temperature 98.5 F 08/23/17 09:43 Pulse Rate 89 08/23/17 09:43 Respiratory Rate 18 08/23/17 09:43 Blood Pressure 123/66 08/23/17 09:43 O2 Sat by Pulse Oximetry (%) Laboratory Tests 08/20/17 08/20/17 08/20/17 06:00 06:00 06:00 WBC 4.2 RBC 3.74 L Hgb 13.3 Hct 39.5 MCV 105.7 H MCH 35.5 H MCHC 33.6 RDW 13.4 Plt Count 238 D MPV 8.2 Sodium 143 Potassium 3.8 Chloride 106 Carbon Dioxide 25 D Anion Gap 12 BUN 14 D Creatinine 0.9 D Creat Clearance w eGFR > 60 Random Glucose 108 H D Calcium 8.7 Total Bilirubin 0.7 D AST 28 D ALT 29 D Alkaline Phosphatase 66 D Total Protein 8.0 D Albumin 4.0 Urine Color Urine Appearance Urine pH Ur Specific [place] Urine Protein Urine Glucose (UA) Urine Ketones Urine Blood Urine Nitrite Urine Bilirubin Urine Urobilinogen Ur Leukocyte Esterase RPR Titer Nonreactive 08/20/17 08:50 WBC RBC Hgb Hct MCV MCH MCHC RDW Plt Count MPV Sodium Potassium Chloride Carbon Dioxide Anion Gap BUN Creatinine Creat Clearance w eGFR Random Glucose Calcium Total Bilirubin AST ALT Alkaline Phosphatase Total Protein Albumin Urine Color Sandie Urine Appearance Turbid Urine pH 5.0 Ur Specific [place] 1.024 Urine Protein Negative Urine Glucose (UA) Negative Urine Ketones Negative Urine Blood Negative Urine Nitrite Negative Urine Bilirubin Negative Urine Urobilinogen Negative Ur Leukocyte Esterase Negative RPR Titer LABS NOTED. Assessment: 08/23/17 12:38 WITHDRAWAL SYMPTOMS. Plan: CONTINUE DETOX.
[2017-08-23] MEDS: THIAMINE HCL 100 MG TABLET (FP) PO SCH (22:13)
[2017-08-23] MEDS: diphenhydrAMINE HCL 25 MG CAPSULE (FP) PO PRN (22:14)
[2017-08-24] MEDS ORDERED: METHADONE HCL 5 MG TABLET (FOR DETOX USE ONLY) PO SCH (06:00)
[2017-08-24 06:08] VITALS: BP 101/71; PULSE 75; TEMP 95.2
--- NOTE | 2017-08-24 14:35 | PN ---
S Progress Note (SOAP) Subjective: Patient denies current Detox symptoms and reports that he is feeling well overall. Objective: PATIENT A & O X 3, OBSERVED AMBULATING ON UNIT. NO ACUTE DISTRESS. 08/24/17 14:33 Vital Signs Temperature 95.2 F L 08/24/17 06:08 Pulse Rate 75 08/24/17 06:08 Respiratory Rate 19 08/24/17 06:08 Blood Pressure 101/71 08/24/17 06:08 O2 Sat by Pulse Oximetry (%) Laboratory Tests 08/20/17 08/20/17 08/20/17 06:00 06:00 06:00 WBC 4.2 RBC 3.74 L Hgb 13.3 Hct 39.5 MCV 105.7 H MCH 35.5 H MCHC 33.6 RDW 13.4 Plt Count 238 D MPV 8.2 Sodium 143 Potassium 3.8 Chloride 106 Carbon Dioxide 25 D Anion Gap 12 BUN 14 D Creatinine 0.9 D Creat Clearance w eGFR > 60 Random Glucose 108 H D Calcium 8.7 Total Bilirubin 0.7 D AST 28 D ALT 29 D Alkaline Phosphatase 66 D Total Protein 8.0 D Albumin 4.0 Urine Color Urine Appearance Urine pH Ur Specific [place] Urine Protein Urine Glucose (UA) Urine Ketones Urine Blood Urine Nitrite Urine Bilirubin Urine Urobilinogen Ur Leukocyte Esterase RPR Titer Nonreactive 08/20/17 08:50 WBC RBC Hgb Hct MCV MCH MCHC RDW Plt Count MPV Sodium Potassium Chloride Carbon Dioxide Anion Gap BUN Creatinine Creat Clearance w eGFR Random Glucose Calcium Total Bilirubin AST ALT Alkaline Phosphatase Total Protein Albumin Urine Color Sandie Urine Appearance Turbid Urine pH 5.0 Ur Specific [place] 1.024 Urine Protein Negative Urine Glucose (UA) Negative Urine Ketones Negative Urine Blood Negative Urine Nitrite Negative Urine Bilirubin Negative Urine Urobilinogen Negative Ur Leukocyte Esterase Negative RPR Titer LABS NOTED. Assessment: 08/24/17 14:33 COMPLETION OF DETOX REGIMEN. 08/24/17 14:35 Plan: PATIENT SCHEDULED FOR DISCHARGE FROM DETOX TODAY. UNIT STAFF IS CURRENTLY INQUIRING ABOUT BED AVAILABILITY IN [facility]. HOWEVER, PATIENT OPTS TO LEAVE TO GO HOME AND TO RETURN FOR ADMISSION ON A DIFFERENT DAY.
--- NOTE | 2017-08-24 14:42 | DS ---
[facility] Detox Discharge Summary Admission Date: 08/19/17 Discharge Date: 08/24/17 - History Present History: Alcohol Dependence, Cannabis Dependence, Opioid Dependence Additional Comments: PATIENT ELECTED TO GO HOME PRIOR TO DETERMINING WHETHER OR NOT BED IS CURRENTLY AVAILABLE IN [facility]. PATIENT REPORTS THAT HE WILL CONTACT [facility] ADMISSIONS IN THE NEXT FEW DAYS TO INQUIRE ABOUT POSSIBLE BED AVAILABILITY AT THAT TIME. PATIENT WAS DISCHARGED FROM DETOX UNIT IN STABLE MEDICAL CONDITION. Pertinent Past History: Asthma, History of Seizure (ETOH-Related), Use of Cane as Ambulatory Aid, Nicotine Dependence, Weight Loss, GERD. - Physical Exam Results Vital Signs: Vital Signs Temperature 95.2 F L 08/24/17 06:08 Pulse Rate 75 08/24/17 06:08 Respiratory Rate 19 08/24/17 06:08 Blood Pressure 101/71 08/24/17 06:08 O2 Sat by Pulse Oximetry (%) Pertinent Admission Physical Exam Findings: WITHDRAWAL SYMPTOMS. Laboratory Tests 08/20/17 08/20/17 08/20/17 06:00 06:00 06:00 WBC 4.2 RBC 3.74 L Hgb 13.3 Hct 39.5 MCV 105.7 H MCH 35.5 H MCHC 33.6 RDW 13.4 Plt Count 238 D MPV 8.2 Sodium 143 Potassium 3.8 Chloride 106 Carbon Dioxide 25 D Anion Gap 12 BUN 14 D Creatinine 0.9 D Creat Clearance w eGFR > 60 Random Glucose 108 H D Calcium 8.7 Total Bilirubin 0.7 D AST 28 D ALT 29 D Alkaline Phosphatase 66 D Total Protein 8.0 D Albumin 4.0 Urine Color Urine Appearance Urine pH Ur Specific Lulu Urine Protein Urine Glucose (UA) Urine Ketones Urine Blood Urine Nitrite Urine Bilirubin Urine Urobilinogen Ur Leukocyte Esterase RPR Titer Nonreactive 08/20/17 08:50 WBC RBC Hgb Hct MCV MCH MCHC RDW Plt Count MPV Sodium Potassium Chloride Carbon Dioxide Anion Gap BUN Creatinine Creat Clearance w eGFR Random Glucose Calcium Total Bilirubin AST ALT Alkaline Phosphatase Total Protein Albumin Urine Color Sandie Urine Appearance Turbid Urine pH 5.0 Ur Specific Lulu 1.024 Urine Protein Negative Urine Glucose (UA) Negative Urine Ketones Negative Urine Blood Negative Urine Nitrite Negative Urine Bilirubin Negative Urine Urobilinogen Negative Ur Leukocyte Esterase Negative RPR Titer LABS NOTED. - Treatment Hospital Course: Detox Protocol Followed, Detoxed Safely, Responded well, Discharged Condition Good Patient has Accepted a Rehab Referral to: [facility] ([facility].) . - Medication Discharge Medications: Ambulatory Orders Albuterol Sulfate Inhaler - [Ventolin Hfa Inhaler -] 2 inh PO Q4H PRN 08/19/17 - Diagnosis (1) Alcohol dependence with uncomplicated withdrawal Status: Acute (2) Drug-induced mood disorder Status: Acute (3) Nicotine dependence Status: Chronic Qualifiers: Nicotine product type: cigarettes Substance use status: in withdrawal Qualified Code(s): F17.213 - Nicotine dependence, cigarettes, with withdrawal (4) Asthma Status: Chronic Qualifiers: Asthma severity: moderate Asthma persistence: unspecified Asthma complication type: with status asthmaticus Qualified Code(s): J45.902 - Unspecified asthma with status asthmaticus (5) Chronic back pain Status: Chronic Qualifiers: Back pain location: low back pain Back pain laterality: bilateral Sciatica presence: without sciatica Qualified Code(s): M54.5 - Low back pain; G89.29 - Other chronic pain; G89.29 - Other chronic pain (6) Seizure Status: Chronic (7) Use of cane as ambulatory aid Status: Chronic (8) Cannabis dependence, uncomplicated Status: Chronic (9) Opioid dependence with withdrawal Status: Acute (10) Weight loss Status: Acute (11) GERD (gastroesophageal reflux disease) Status: Chronic Qualifiers: Esophagitis presence: without esophagitis Qualified Code(s): K21.9 - Gastro -esophageal reflux disease without esophagitis - AMA Did Patient Leave Against Medical Advice: No
== END 2017-08-24 09:14 | disposition home or self-care (01) | DRG 773 ==
LOC: YASAS 08:48 → Y3N 12:22
PROVIDERS: ADMIT Internal Medicine; ATTEND Internal Medicine
PROC: HZ2ZZZZ Detoxification Services for Substance Abuse Treatment (ICD-10-PCS; principal; 2017-08-19)
DX: F11.23 Opioid dependence with withdrawal (principal); F10.230 Alcohol dependence with withdrawal, uncomplicated; F12.20 Cannabis dependence, uncomplicated; F17.210 Nicotine dependence, cigarettes, uncomplicated; F19.24 Other psychoactive substance dependence with psychoactive substance-induced mood disorder; K21.9 Gastro-esophageal reflux disease without esophagitis; M54.5 Low back pain; G89.29 Other chronic pain; R63.4 Abnormal weight loss; Z68.24 Body mass index [BMI] 24.0-24.9, adult; Z86.69 Personal history of other diseases of the nervous system and sense organs; R26.89 Other abnormalities of gait and mobility; Z99.89 Dependence on other enabling machines and devices
CPT/HCPCS: 36415; 80053; 81003; 85027; 86593; 93005; 93010

== ENCOUNTER 2021-07-30 22:12 | Inpatient (IN) | payer OTHER ==
[2021-07-30] MEDS ORDERED: LORazepam 1 MG TABLET PO PRN (22:41)
[2021-07-30] MEDS ORDERED: NICOTINE POLACRILEX 2 MG GUM BUC PRN (22:41)
[2021-07-30] MEDS ORDERED: ONDANSETRON *ODT* 4 MG TABLET SL PRN (22:41)
[2021-07-30] MEDS ORDERED: ACETAMINOPHEN 325 MG TABLET (FP) PO PRN ×2 (22:41)
[2021-07-30] MEDS ORDERED: MAGNESIUM HYDROX 2400MG/30ML ORAL SUSPENSION 30 ML CUP PO PRN (22:41)
[2021-07-30] MEDS ORDERED: LOPERAMIDE HCL 2 MG CAPSULE PO PRN (22:41)
[2021-07-30] MEDS ORDERED: MENTHOL/PHENOL 1 EACH UD MM PRN (22:41)
[2021-07-30] MEDS ORDERED: P-EPHED 60MG/TRIPROLIDI 2.5MG TABLET PO PRN (22:41)
[2021-07-30] MEDS ORDERED: MAGNESIUM CITRATE 300 ML BOTTLE PO PRN (22:41)
[2021-07-30] MEDS ORDERED: BISMUTH SUBSALICYLATE 524 MG/30 ML PO PRN (22:41)
[2021-07-30] MEDS ORDERED: guaiFENesin 200 MG/10 ML 10 ML UNIT-DOSE CUPS PO PRN (22:41)
[2021-07-30] MEDS ORDERED: METHOCARBAMOL 500 MG TABLET PO PRN (22:41)
[2021-07-30] MEDS ORDERED: IBUPROFEN 400 MG TABLET (FP) PO PRN (22:41)
[2021-07-30] MEDS ORDERED: MAG HYDROX/AL HYDROX/SIMETH 30 ML UNIT-DOSE CUP PO PRN (22:41)
[2021-07-30] MEDS ORDERED: DICYCLOMINE HCL 10 MG CAPSULE PO PRN (22:41)
[2021-07-30 23:13] VITALS: BMI 26.8
[2021-07-31] MEDS: LORazepam 2 MG TABLET PO SCH ×5 (00:50→23:27)
[2021-07-31] MEDS: hydrOXYzine PAMOATE 25 MG CAPSULE (FP) PO PRN (10:28)
[2021-07-31] MEDS: NICOTINE 14 MG/24 HOURS TOPICAL PATCH TD SCH (10:29)
[2021-07-31] MEDS: PRENATAL VITAMINS W/ FOLIC ACID TABLET (FP) PO SCH (10:29)
[2021-07-31 11:53] LABS: HEMOGLOBIN 12.7 GM/dL (11.7-16.9); MCH 34.9 pg (25.7-33.7); MCHC 33.4 g/dl (32.0-35.9); MEAN CELL VOLUME 104.3 fl (80-96); MEAN PLT VOLUME 8.2 fl (7.5-11.1); PLATELET COUNT 147 10^3/uL (134-434); RBC 3.64 M/mm3 (4.00-5.60); RDW 14.3 % (11.9-15.9); WHITE BLOOD COUNT 3.1 K/mm3 (4.0-10.0)
[2021-07-31 11:59] LABS: CALCIUM 8.2 mg/dL (8.5-10.1)
[2021-07-31 12:01] LABS: ALBUMIN 3.6 g/dl (3.4-5.0); BLOOD UREA NITROGEN 12.4 mg/dL (7-18)
[2021-07-31 12:03] LABS: CREATININE 0.7 mg/dL (0.55-1.3)
[2021-07-31 12:06] LABS: TOT PROT 6.7 g/dl (6.4-8.2)
[2021-07-31] MEDS ORDERED: THIAMINE HCL 100 MG TABLET (FP) PO SCH (22:00)
[2021-07-31] MEDS ORDERED: MELATONIN 5 MG TABLETS PO SCH (22:00)
[2021-08-01] MEDS: LORazepam 1 MG TABLET PO SCH ×2 (07:13→11:00)
[2021-08-01] MEDS: hydrOXYzine PAMOATE 25 MG CAPSULE (FP) PO PRN (11:00)
[2021-08-01] MEDS: PRENATAL VITAMINS W/ FOLIC ACID TABLET (FP) PO SCH (11:00)
[2021-08-01] MEDS: NICOTINE 14 MG/24 HOURS TOPICAL PATCH TD SCH (11:00)
[2021-08-01] MEDS ORDERED: POTASSIUM CHLORIDE TABS 20 MEQ TABLET.ER (FP) PO ONE (11:06)
[2021-08-01] MEDS ORDERED: ALBUTEROL SO4 HFA INHALER IH PRN (12:10)
[2021-08-01 13:14] VITALS: BP 128/90; PULSE 75; TEMP 98
[2021-08-01] MEDS ORDERED: POTASSIUM CHLORIDE TABS 20 MEQ TABLET.ER (FP) PO SCH (18:00)
[2021-08-02] MEDS ORDERED: LORazepam 0.5 MG TABLET PO PRN
[2021-08-02 00:06] LABS: SARS-CoV-2 NAA Not Detected (Not Detected)
[2021-08-02] MEDS ORDERED: LORazepam 0.5 MG TABLET PO SCH (05:00)
[2021-08-02 13:07] LABS: SARS-CoV-2 NAA Not Detected (Not Detected)
[2021-08-03] MEDS ORDERED: LORazepam 0.5 MG TABLET PO ONE (05:00)
== END 2021-08-01 16:55 | disposition left against medical advice (07) | DRG 770 ==
LOC: YASAS 22:12 → Y6N 23:19
PROVIDERS: ADMIT Allergy & Immunology; ATTEND Allergy & Immunology
PROC: HZ2ZZZZ Detoxification Services for Substance Abuse Treatment (ICD-10-PCS; principal; 2021-07-30)
DX: F10.230 Alcohol dependence with withdrawal, uncomplicated (principal); F12.20 Cannabis dependence, uncomplicated; F17.210 Nicotine dependence, cigarettes, uncomplicated; F19.24 Other psychoactive substance dependence with psychoactive substance-induced mood disorder; D72.819 Decreased white blood cell count, unspecified; E87.6 Hypokalemia; J45.20 Mild intermittent asthma, uncomplicated; M19.90 Unspecified osteoarthritis, unspecified site; M54.50 Low back pain, unspecified; G89.29 Other chronic pain; Z59.00 Homelessness unspecified
CPT/HCPCS: 36415; 80053; 80307; 85025; 85027; 86780; 99282-25; C9803; U0003; U0005